=== PATIENT | female | born 1990 | race American Indian/Alaskan Native ===

== ENCOUNTER 2017-01-30 10:19 | Emergency (ER) | payer BC ==
[2017-01-30 11:13] LABS: Basophils % (Auto) 0.8 % (0.0-1.8); Eosinophils % (Auto) 2.1 % (0.0-4.3); Hematocrit 38.7 % (30.3-42.9); Hemoglobin 12.7 gm/dl (10.1-14.3); Mean Corpuscular HGB Conc 33 % (30-34); Mean Corpuscular Hemoglobin 28 pg (28-32); Mean Corpuscular Volume 86 fl (79-97); Platelet Count 267 K/mm3 (140-440); Red Blood Count 4.52 M/mm3 (3.65-5.03); Red Cell Distribution Width 13.9 % (13.2-15.2); White Blood Count 9.1 K/mm3 (4.5-11.0)
[2017-01-30 11:18] LABS: Bilirubin,Urine NEG (Negative); Blood,Urine NEG (Negative); Ketones,Urine NEG (Negative); Leukocyte Esterase,Urine NEG (Negative); Mucus,Urine FEW /HPF; Nitrite,Urine NEG (Negative); Urobilinogen,Urine < 2.0 mg/dL (<2.0)
--- NOTE | 2017-01-30 11:23 | Emergency Department Report ---
ED General Adult HPI - General Chief complaint: High BP Stated complaint: HIGH BP/ 10 WEEKS PREG. Time Seen by Provider: 01/30/17 11:14 Source: patient Mode of arrival: Ambulatory Limitations: No Limitations - History of Present Illness Initial comments: Patient is 26 years old female 10 weeks first came with a blood pressure of 195/120 it. Patient stated that her symptoms started on thyroid there was a headache and been going on since then denied any weakness numbness or tingling sensation, no bowel or bladder incontinence. Patient stated that she was on lisinopril but she started since she started and she is on methyldopa now. Patient denied any vaginal bleeding or abdominal pain or chest pain. -: Gradual Location: head Severity scale (0 -10): 7 Quality: sharp Associated Symptoms: headaches. denies: confusion, chest pain, cough, diaphoresis, fever/chills, loss of appetite, malaise, nausea/vomiting, rash, shortness of breath, syncope, weakness - Related Data Previous Rx's Medication Instructions Recorded Last Taken Type hydrALAZINE [Apresoline TAB] 50 mg PO BID #10 tab 01/30/17 Unknown Rx Allergies Allergy/AdvReac Type Severity Reaction Status Date / Time No Known Allergies Allergy Unverified 01/30/17 10:49 ED Review of Systems ROS: Stated complaint: HIGH BP/ 10 WEEKS PREG. Other details as noted in HPI Comment: All other systems reviewed and negative Constitutional: denies: chills, fever ENT: denies: throat pain Respiratory: denies: cough, orthopnea, shortness of breath Cardiovascular: denies: chest pain, palpitations Gastrointestinal: denies: abdominal pain, nausea, vomiting, diarrhea, constipation Musculoskeletal: denies: back pain, joint swelling Neurological: headache. denies: weakness, numbness, paresthesias, confusion, abnormal gait, vertigo ED Past Medical Hx - Past Medical History Previous Medical History?: Yes Hx Hypertension: Yes Additional medical history: Nephrotic syndrome - Surgical History Past Surgical History?: No - Social History Smoking Status: Never Smoker Substance Use Type: Prescribed - Medications Home Medications: Home Medications Medication Instructions Recorded Confirmed Last Taken Type hydrALAZINE [Apresoline TAB] 50 mg PO BID #10 tab 01/30/17 Unknown Rx ED Physical Exam - General Limitations: No Limitations General appearance: alert, in no apparent distress - Head Head exam: Present: atraumatic, normocephalic, normal inspection - Eye Eye exam: Present: normal appearance, PERRL, EOMI Pupils: Present: normal accommodation - ENT ENT exam: Present: normal exam, normal orophraynx, mucous membranes moist - Neck Neck exam: Present: normal inspection, full ROM. Absent: tenderness, meningismus - Respiratory Respiratory exam: Present: normal lung sounds bilaterally. Absent: respiratory distress, wheezes, rales, rhonchi, stridor, chest wall tenderness, accessory muscle use, decreased breath sounds, prolonged expiratory - Cardiovascular Cardiovascular Exam: Present: regular rate, normal rhythm, normal heart sounds - GI/Abdominal GI/Abdominal exam: Present: soft, normal bowel sounds. Absent: distended, tenderness, guarding, rebound, rigid, mass, bruit, pulsatile mass, hernia - Extremities Exam Extremities exam: Present: normal inspection. Absent: pedal edema - Back Exam Back exam: Present: normal inspection. Absent: tenderness, CVA tenderness (R), CVA tenderness (L) - Neurological Exam Neurological exam: Present: alert, oriented X3, CN II-XII intact, normal gait, reflexes normal. Absent: abnormal gait, motor sensory deficit - Skin Skin exam: Present: warm, intact, normal color ED Course Vital Signs 01/30/17 01/30/17 01/30/17 10:44 10:59 11:00 Temperature 98.5 F Pulse Rate 78 Respiratory 16 Rate Blood Pressure 186/120 195/128 Blood Pressure [Right] O2 Sat by Pulse 100 90 99 Oximetry 01/30/17 01/30/17 01/30/17 11:06 11:16 11:30 Temperature 98.6 F Pulse Rate 64 95 H 71 Respiratory 18 18 20 Rate Blood Pressure 195/128 195/128 Blood Pressure 195/128 [Right] O2 Sat by Pulse 98 100 Oximetry 01/30/17 01/30/17 01/30/17 11:38 11:46 12:00 Temperature Pulse Rate 63 96 H 101 H Respiratory 17 15 Rate Blood Pressure 195/128 177/108 184/103 Blood Pressure [Right] O2 Sat by Pulse 100 100 Oximetry 01/30/17 12:18 Temperature Pulse Rate Respiratory Rate Blood Pressure 184/103 Blood Pressure [Right] O2 Sat by Pulse 87 Oximetry - Reevaluation(s) Reevaluation #1: 01/30/17 13:04 Patient stated that she is feeling much better. Denied any headache, blurry vision, weakness numbness or tingling sensation abdominal pain or vaginal bleeding. Her blood pressure now is 141/86. Dr. Belem Bliss consulted and she advised to discharge home his hydralazine and to follow-up with them in the office tomorrow in the morning for further management. ED Medical Decision Making - Lab Data Result diagrams: 01/30/17 11:00 01/30/17 11:00 - Medical Decision Making Discussed the patient was Dr. Belem westfall, the patient advised patient can continue his hydralazine and they will see high in the office tomorrow. The reason that were not using labetalol is because of a low heart rate which is like 63. Critical care attestation.: If time is entered above; I have spent that time in minutes in the direct care of this critically ill patient, excluding procedure time. ED Disposition Clinical Impression: Hypertension affecting in first trimester Disposition: DC-01 TO HOME OR SELFCARE Is pt being admited?: No Condition: Stable Instructions: Hypertension (ED) Additional Instructions: Follow-up with Dr. Marylou Flores OB tomorrow as discussed with Dr. Belem Bliss Prescriptions: hydrALAZINE [Apresoline TAB] 50 mg PO BID #10 tab Referrals: PRIMARY CARE, [Primary Care Provider] - 3-5 Days
[2017-01-30] MEDS ORDERED: TYLENOL PO ONE (11:24)
[2017-01-30] MEDS ORDERED: APRESOLINE IV ONE (11:24)
[2017-01-30 11:27] LABS: Anion Gap 18 mmol/L; BUN/Creatinine Ratio 15.71; Blood Urea Nitrogen 11 mg/dL (7-17); Calcium 9.1 mg/dL (8.4-10.2); Carbon Dioxide 24 mmol/L (22-30); Chloride 95.1 mmol/L (98-107); Glucose 82 mg/dL (65-100); Potassium 3.4 mmol/L (3.6-5.0); Sodium 134 mmol/L (137-145)
[2017-01-30 11:42] LABS: Albumin 4.2 g/dL (3.9-5); Albumin/Globulin Ratio 1.3 %; Bilirubin,Total 0.3 mg/dL (0.1-1.2); Total Protein 7.4 g/dL (6.3-8.2)
[2017-01-30 11:51] LABS: Bilirubin,Direct 0.2 mg/dL (0-0.2); Bilirubin,Indirect 0.1 mg/dL
[2017-01-30 11:51] LABS: INR 0.91 (0.87-1.13)
[2017-01-30 11:52] LABS: Partial Thromboplastin Time 27.5 Sec. (24.2-36.6)
[2017-01-30 12:21] VITALS: BP 184/103
== END 2017-01-30 13:15 | disposition home or self-care (01) ==
LOC: ED 10:19 → MERGE 10:19 → ED 13:15
DX: O16.1 Unspecified maternal hypertension, first trimester (principal); Z3A.10 10 weeks gestation of pregnancy
CPT/HCPCS: 36415; 80048; 80074; 81001; 83615; 85025; 85610; 85730; 96374; 99283; J0360

== ENCOUNTER 2017-01-31 10:02 | Inpatient (IN) | payer BC ==
[2017-01-31] MEDS ORDERED: LACTATED RINGERS 1,000 ML IV SCH (11:00)
[2017-01-31] MEDS ORDERED: APRESOLINE IV PRN (11:30)
[2017-01-31] MEDS ORDERED: SODIUM CHLORIDE FLUSH SYRINGE 10 ML IV PRN (11:30)
[2017-01-31 12:04] LABS: Basophils % (Auto) 0.6 % (0.0-1.8); Hematocrit 36.9 % (30.3-42.9); Hemoglobin 12.7 gm/dl (10.1-14.3); Mean Corpuscular HGB Conc 35 % (30-34); Mean Corpuscular Hemoglobin 29 pg (28-32); Mean Corpuscular Volume 84 fl (79-97); Platelet Count 247 K/mm3 (140-440); Red Blood Count 4.41 M/mm3 (3.65-5.03); Red Cell Distribution Width 13.8 % (13.2-15.2); White Blood Count 9.8 K/mm3 (4.5-11.0)
[2017-01-31 12:23] LABS: Alanine Aminotransferase 23 units/L (7-56); Lactate Dehydrogenase 174 units/L (91-180); Uric Acid 4.1 mg/dL (3.5-7.6)
[2017-01-31] MEDS: NORMODYNE IV PRN ×2 (13:20→23:45)
--- NOTE | 2017-01-31 13:25 | Ultrasound Report ---
ULTRASOUND OB LIMITED History: well being Technique: Transabdominal ultrasound with Doppler interrogation. Gestation: Single Position: Variable Heart Rate: 174 BPM
[2017-01-31] MEDS: ALDOMET PO SCH ×2 (14:08→21:07)
[2017-01-31 14:50] LABS: Bilirubin,Urine NEG (Negative); Blood,Urine NEG (Negative); Ketones,Urine NEG (Negative); Leukocyte Esterase,Urine NEG (Negative); Nitrite,Urine NEG (Negative); Urobilinogen,Urine < 2.0 mg/dL (<2.0)
[2017-01-31 14:51] LABS: RBC,Urine < 1.0 /HPF (0.0-6.0)
--- NOTE | 2017-01-31 15:57 | Consultation ---
History of Present Illness - Reason for Consult Consult date: 01/31/17 accelerated hypertension, proteinuria, other - History of Present Illness 26 year old female primigravida LMP 11/21/16 at 10w1d admitted with a compliant of headache x 4 days duration and elevated BP. She states that she went to the ED on 01/27/17 started on started on hydralazine 50 mg PO BID for BP control. Prior to her she was on lisinopril for BP and switched to methyldopa at just before her . Her high BP hx is since age 18 and has also hx of nephrotic syndrome and was treated with steroids and prograf. We are consulted for management of her HTN and nephrotic syndrome. Past History Past Medical History: hypertension, other (nephrotic syndrome) Past Surgical History: No surgical history Social history: no significant social history. denies: smoking, alcohol abuse, IV drug use Family history: no significant family history Medications and Allergies Allergies Allergy/AdvReac Type Severity Reaction Status Date / Time No Known Allergies Allergy Verified 01/31/17 11:19 Home Medications Medication Instructions Recorded Confirmed Last Taken Type hydrALAZINE [Apresoline TAB] 50 mg PO BID #10 tab 01/30/17 01/31/17 08:00 Rx Active Meds: Active Medications Acetaminophen (Tylenol) 650 mg PO Q4H PRN PRN Reason: Pain MILD(1-3)/Fever >100.5/HITCHCOCK Acetaminophen/Hydrocodone Bitart ([place] 5/325) 2 each PO Q4H PRN PRN Reason: Pain, Moderate (4-6) Docusate Sodium (Colace) 100 mg PO Q12H PRN PRN Reason: Constipation Hydralazine HCl (Apresoline) 5 mg IV Q30MIN PRN PRN Reason: Hypertension Lactated Ringer's (Lactated Ringers) 1,000 mls @ 125 mls/hr IV DIRECT CALISTA Labetalol HCl (Normodyne) 10 mg IV Q6HR PRN PRN Reason: sbp>150 Last Admin: 01/31/17 13:20 Dose: 10 mg Methyldopa (Aldomet) 250 mg PO Q8HR CALISTA Last Admin: 01/31/17 14:08 Dose: 250 mg Multivitamins/Iron/Calcium ( Vitamin) 1 each PO QDAY [place] Sodium Chloride (Sodium Chloride Flush Syringe 10 Ml) 10 ml IV PRN PRN PRN Reason: LINE FLUSH Review of Systems Constitutional: no weight loss, no weight gain, no fever, no chills Ears, nose, mouth and throat: no ear discharge, no tinnitis, no decreased hearing Cardiovascular: no chest pain, no orthopnea, no palpitations Respiratory: no hemoptysis, no shortness of breath, no dyspnea on exertion Gastrointestinal: no abdominal pain, no nausea, no vomiting, no diarrhea Genitourinary Female: no dyspareunia, no dysmenorrhea, no pelvic pain, no flank pain Rectal: no pain, no incontinence Musculoskeletal: no neck stiffness, no neck pain, no shooting arm pain Integumentary: no rash, no pruritis, no redness Neurological: headaches, no transient paralysis, no paralysis, no weakness Psychiatric: no anxiety, no memory loss Endocrine: no cold intolerance, no heat intolerance, no polydipsia, no polyuria , no nocturia Hematologic/Lymphatic: no easy bruising, no easy bleeding Allergic/Immunologic: no urticaria, no allergic rhinitis Exam - Vital Signs Vital signs: Vital Signs Pulse Resp 76 20 01/31/17 11:25 01/31/17 11:25 - General Appearance General appearance: well-developed, well-nourished, appears stated age EENT: PERRL, mucous membranes moist Neck: Present: neck supple, trachea midline. Absent: JVD/HJR, Masses Respiratory: Clear to Ascultation, Other (no wheeing ) Heart: regular, normal heart rate, S1S2, no murmurs Gastrointestinal: Present: normal. Absent: tenderness, distended, masses, guarding Integumentary: no rash, warm and dry Neurologic: no focal deficit, alert and oriented x3, gait normal, strength 5/5 Musculoskeletal: Absent: deformities, joint swelling Psychiatric: mood/affect appropriate, cooperative Results - Lab Results 01/31/17 11:45 01/31/17 11:45 Assessment and Plan 1. Malignant hypertension (chronic) 2. Intra uterine , 10 W1d 3. Hx of nephrotic syndrome 4. Headaches likely 2/2 her elevated BP Plan: - Started Methyldopa 250 mg TID -IV labetalol 10 mg Q 6 hrs for SBP>150 -Goal is to lower BP to 150-160 range today and gradually lower BP to < =130/80 -Obtain 24 hr urine for Protein -F/u on OB U/S Further recommendations to follow. Thank you for the consult.
--- NOTE | 2017-01-31 17:32 | History and Physical Report ---
History of Present Illness Date of examination: 01/31/17 Date of admission: 01/31/17 10:55 Chief complaint: headache, hypertension History of present illness: Pt is a 26 year old female primigravida LMP 11/21/16 at 10w1d presents for the office with elevated blood pressures and headache. Her headache initially started on 01/27/17 and prompted her to go to the Emergency Department for evaluation where her blood pressure was noted to be 180-190s/100-120s. She was started on hydralazine 50 mg PO BID and told to follow up today in the office. Her headache remained, and her pressures were 160/100s in the office so she was admitted for blood pressure control. The patient has a medical history significant for chronic hypertension and nephrotic syndrome. She has had one visit with [facility]. Past History Past Medical History: hypertension, other (nephrotic syndrome ) Past Surgical History: no surgical history Family/Genetic History: diabetes Social history: - Obstetrical History Expected Date of Delivery: 08/28/17 Actual Gestation: 10 Week(s) 1 Day(s) : 1 Medications and Allergies Allergies Allergy/AdvReac Type Severity Reaction Status Date / Time No Known Allergies Allergy Verified 01/31/17 11:19 Home Medications Medication Instructions Recorded Confirmed Last Taken Type hydrALAZINE [Apresoline TAB] 50 mg PO BID #10 tab 01/30/17 01/31/17 08:00 Rx Active Meds: Active Medications Acetaminophen (Tylenol) 650 mg PO Q4H PRN PRN Reason: Pain MILD(1-3)/Fever >100.5/HITCHCOCK Acetaminophen/Hydrocodone Bitart ([place] 5/325) 2 each PO Q4H PRN PRN Reason: Pain, Moderate (4-6) Docusate Sodium (Colace) 100 mg PO Q12H PRN PRN Reason: Constipation Hydralazine HCl (Apresoline) 5 mg IV Q30MIN PRN PRN Reason: Hypertension Lactated Ringer's (Lactated Ringers) 1,000 mls @ 125 mls/hr IV DIRECT CALISTA Labetalol HCl (Normodyne) 10 mg IV Q6HR PRN PRN Reason: sbp>150 Last Admin: 01/31/17 13:20 Dose: 10 mg Methyldopa (Aldomet) 250 mg PO Q8HR CALISTA Last Admin: 01/31/17 14:08 Dose: 250 mg Multivitamins/Iron/Calcium ( Vitamin) 1 each PO QDAY [facility] Sodium Chloride (Sodium Chloride Flush Syringe 10 Ml) 10 ml IV PRN PRN PRN Reason: LINE FLUSH Review of Systems All systems: negative Neurological: headaches (per HPI), no migraines - Vital Signs Vital signs: Vital Signs Temp Pulse Resp BP 99.5 F 76 20 195/118 01/31/17 11:25 01/31/17 11:25 01/31/17 11:25 01/31/17 11:25 Temp Pulse Resp BP Pulse Ox 99.5 F 79 20 140/94 01/31/17 11:25 01/31/17 16:15 01/31/17 11:25 01/31/17 16:45 - Physical Exam Breasts: Positive: deferred Abdomen: Positive: soft Extremities: Positive: normal Results Result Diagrams: 01/31/17 11:45 01/31/17 11:45 Abnormal lab results 01/31/17 01/31/17 Range/Units 11:45 11:45 MCHC 35 H (30-34) % Seg Neutrophils % 77.4 H (40.0-70.0) % Creatinine 0.6 L (0.7-1.2) mg/dL All other labs normal. Assessment and Plan A: IUP at 10w1d Chronic Hypertension Headache Nephrotic Syndrome P: Admit to antepartum service. PIH labs IV antihypertensives PRN 24 hr urine collection Nephrology consult MFM consult [facility] ultrasound
[2017-01-31] MEDS: TYLENOL PO PRN (18:00)
[2017-01-31] MEDS: NORCO 5/325 PO PRN (21:09)
[2017-02-01] MEDS: ALDOMET PO SCH ×3 (07:05→21:59)
--- NOTE | 2017-02-01 08:36 | Progress Note ---
Assessment and Plan - Patient Problems (1) Nephrotic syndrome Current Visit: Yes Status: Acute Plan to address problem: procardia XL added to anti-hypertensive regimen awaiting urine collection results (2) Hypertension affecting in first trimester Current Visit: No Status: Acute Subjective - Subjective Date of service: 02/01/17 Principal diagnosis: chronic hypertension and nephrotic syndrome Interval history: 26y/o @ 10+2 weeks admitted for chronic hypertension and nephrotic syndrome. Today the patient is without complaints. Using aldomet TID for control of hypertension. Currently collecting a 24 urine specimen. Patient reports: no new complaints, no vaginal bleeding Objective - Vital Signs Vital Signs: Vital Signs - 12hr 01/31/17 01/31/17 01/31/17 21:07 23:30 23:45 Temperature 98.6 F Pulse Rate 70 70 70 Respiratory 16 Rate Blood Pressure 159/91 182/102 Blood Pressure 182/102 [Right] 01/31/17 02/01/17 02/01/17 23:55 00:00 00:05 Temperature Pulse Rate 68 61 Respiratory Rate Blood Pressure Blood Pressure 174/102 164/103 158/102 [Right] 02/01/17 02/01/17 02/01/17 00:15 00:56 02:30 Temperature 98.6 F Pulse Rate 62 79 69 Respiratory 16 Rate Blood Pressure Blood Pressure 148/106 124/69 117/69 [Right] 02/01/17 02/01/17 02/01/17 04:15 04:20 06:00 Temperature 98.6 F 98.6 F Pulse Rate 71 79 69 Respiratory 18 16 Rate Blood Pressure Blood Pressure 123/70 125/83 127/76 [Right] 02/01/17 07:05 Temperature Pulse Rate 72 Respiratory Rate Blood Pressure 141/89 Blood Pressure [Right] - Labs Labs: Abnormal Labs 01/31/17 01/31/17 11:45 11:45 MCHC 35 H Seg Neutrophils % 77.4 H Creatinine 0.6 L Laboratory Results - last 24 hr 01/31/17 01/31/17 01/31/17 11:45 11:45 13:58 WBC 9.8 RBC 4.41 Hgb 12.7 Hct 36.9 MCV 84 MCH 29 MCHC 35 H RDW 13.8 Plt Count 247 Lymph % (Auto) 17.2 [place] % (Auto) 3.8 Eos % (Auto) 1.0 Baso % (Auto) 0.6 Lymph # 1.7 [place] # 0.4 Eos # 0.1 Baso # 0.1 Seg Neutrophils % 77.4 H Seg Neutrophils # 7.6 Creatinine 0.6 L Estimated GFR > 60 Uric Acid 4.1 AST 19 ALT 23 Lactate Dehydrogenase 174 Urine Color Red Urine Turbidity Clear Urine pH 7.0 Ur Specific [place] 1.004 Urine Protein 30 mg/dl Urine Glucose (UA) Neg Urine Ketones Neg Urine Blood Neg Urine Nitrite Neg Urine Bilirubin Neg Urine Urobilinogen < 2.0 Ur Leukocyte Esterase Neg Urine WBC (Auto) 1.0 Urine RBC (Auto) < 1.0 U Epithel Cells (Auto) 2.0
[2017-02-01] MEDS ORDERED: PRENATAL VITAMIN PO SCH (10:00)
[2017-02-01] MEDS ORDERED: PROCARDIA XL PO SCH (10:00)
--- NOTE | 2017-02-01 10:39 | Progress Note ---
Assessment and Plan 1. Malignant hypertension (chronic) 2. Intra uterine , 10 W1d 3. Hx of nephrotic syndrome 4. Headaches likely 2/2 her elevated BP Plan: - BP improving. Will increase dose of Methyldopa 500 mg TID for better control of her BP and try to use less of IV antihypertensives -Follow up on 24 hr urine results. -IV labetalol 10 mg Q 6 hrs for SBP>150 -Goal is to gradually lower her BP to <=130/80 -F/u on OB U/S Subjective Date of service: 02/01/17 Principal diagnosis: chronic hypertension and nephrotic syndrome Interval history: No new complaints. Objective - Vital Signs Vital signs: Vital Signs - 12hr 01/31/17 01/31/17 01/31/17 23:30 23:45 23:55 Temperature 98.6 F Pulse Rate 70 70 Pulse Rate [ Apical] Respiratory 16 Rate Blood Pressure 182/102 Blood Pressure [Left] Blood Pressure 182/102 174/102 [Right] 02/01/17 02/01/17 02/01/17 00:00 00:05 00:15 Temperature Pulse Rate 68 61 62 Pulse Rate [ Apical] Respiratory Rate Blood Pressure Blood Pressure [Left] Blood Pressure 164/103 158/102 148/106 [Right] 02/01/17 02/01/17 02/01/17 00:56 02:30 04:15 Temperature 98.6 F 98.6 F Pulse Rate 79 69 71 Pulse Rate [ Apical] Respiratory 16 18 Rate Blood Pressure Blood Pressure [Left] Blood Pressure 124/69 117/69 123/70 [Right] 02/01/17 02/01/17 02/01/17 04:20 06:00 07:05 Temperature 98.6 F Pulse Rate 79 69 72 Pulse Rate [ Apical] Respiratory 16 Rate Blood Pressure 141/89 Blood Pressure [Left] Blood Pressure 125/83 127/76 [Right] 02/01/17 02/01/17 02/01/17 07:45 08:18 08:51 Temperature 99.5 F Pulse Rate 66 Pulse Rate [ 82 Apical] Respiratory 20 18 Rate Blood Pressure Blood Pressure 178/114 [Left] Blood Pressure 166/110 140/81 [Right] - General Appearance General appearance: well-developed, well-nourished, appears stated age EENT: PERRL, mucous membranes moist Neck: no JVD, no thyromegaly, no carotid bruit, supple Respiratory: Present: Clear to Ascultation, Other (no wheezing ) Cardiology: regular, normal heart rate, S1S2, no murmurs Gastrointestinal: normoactive bowel sounds, no tenderness Integumentary: no rash, warm and dry Neurologic: no focal deficit, alert and oriented x3, reflexes 2+ and symmetric, gait normal, strength 5/5 Musculoskeletal: no deformities, no erythema, no cyanosis, no clubbing Psychiatric: mood/affect appropriate, cooperative - Lab 01/31/17 11:45 01/31/17 11:45
[2017-02-01] MEDS ORDERED: ALDOMET PO SCH (11:40)
[2017-02-01] MEDS: COLACE PO PRN (14:35)
[2017-02-01 15:00] LABS: Total Protein 24 Hour,Urine 841.5 (2-200)
[2017-02-01] MEDS: TYLENOL PO PRN (16:20)
[2017-02-01] MEDS: NORCO 5/325 PO PRN ×2 (18:22→22:00)
[2017-02-02] MEDS: ALDOMET PO SCH ×2 (05:31→15:04)
[2017-02-02] MEDS: NORCO 5/325 PO PRN (05:32)
--- NOTE | 2017-02-02 08:45 | Progress Note ---
Assessment and Plan A: IUP at 10w1d Chronic Hypertension Headache Nephrotic Syndrome P: BP normalized throughout the night HITCHCOCK increased with 90mg Procardia will decrease to 30mg Appreciate recommendations from nephrology Await MFM consult 24 hr urine resulted elevated ( 800s) will await rec from nephrology baseline for OB continue norco for pain continue methyldopa 250mg tid US appreciated as normal with viability Subjective - Subjective Date of service: 02/02/17 Principal diagnosis: chronic hypertension and nephrotic syndrome Patient reports: appetite normal, voiding normally, ambulating normally Objective - Vital Signs Latest vital signs: Vital Signs Temp Pulse Resp BP BP BP 02/02/17 05:32 20 02/02/17 05:31 85 122/71 02/02/17 04:20 98.4 F 81 18 111/66 02/01/17 23:49 98.1 F 80 18 122/69 02/01/17 22:00 20 02/01/17 21:59 85 122/69 02/01/17 20:00 98.2 F 91 H 136/90 02/01/17 18:20 97.6 F 89 121/70 02/01/17 16:41 99.2 F 76 20 128/83 02/01/17 16:15 98.7 F 91 H 136/94 02/01/17 14:15 89 115/71 02/01/17 13:41 120/70 02/01/17 12:07 99.6 F 80 20 147/94 02/01/17 08:51 140/81 Intake and Output 02/01/17 02/02/17 02/02/17 23:59 07:59 15:59 Intake Total 120 120 Output Total 400 900 Balance -280 -780 Intake: Oral 120 120 Output: Urine 400 900 Void 400 900 Other: Total, Intake Amount 120 120 Total, Output Amount 400 600 Voiding Method Toilet - Exam Breasts: Present: deferred Cardiovascular: Present: Regular rate, Normal S1 Lungs: Present: Clear to auscultation, Normal air movement Abdomen: Present: normal appearance, soft, normal bowel sounds. Absent: distention, tenderness Uterus: Present: normal Extremities: Present: normal Deep Tendon Reflex Grade: Normal +2 - Labs Labs: Abnormal lab results 01/31/17 Range/Units 13:00 Urine Creatinine 83.8 H (0.1-20.0) mg/dL Ur Total Protein 24 Hr 841.50 H (2-200) Urine Total Protein 51 H (5-11.8) mg/dL
[2017-02-02] MEDS: COLACE PO PRN (11:04)
[2017-02-02] MEDS ORDERED: PROCARDIA XL PO SCH (11:30)
--- NOTE | 2017-02-02 12:07 | Consultation ---
History of Present Illness Reason for consult: other (Pt is a 26 year old female primigravida DEREK 08/28/17 at 10w2d presents for the office with elevated blood pressures and headache. Her headache initially started on 01/27/17 and prompted her to go to the ER blood pressure was noted to be 180-190s/100-120s. She was placed on hydralazine 50 mg PO BID . Her headache remained, and her reported BP were 160/ 100s in the office so she was admitted for blood pressure control. The patient has a medical history significant for chronic hypertension and nephrotic syndrome. She has had one visit with [facility]. ) Past History Past Medical History: hypertension, other (nephrotic syndrome ) Past Surgical History: no surgical history Family/Genetic History: diabetes - Obstetrical History : 1 Medications and Allergies Allergies Allergy/AdvReac Type Severity Reaction Status Date / Time No Known Allergies Allergy Verified 01/31/17 11:19 Home Medications Medication Instructions Recorded Confirmed Last Taken Type hydrALAZINE [Apresoline TAB] 50 mg PO BID #10 tab 01/30/17 02/01/17 01/31/17 08: 00 Rx Active Meds: Active Medications Acetaminophen (Tylenol) 650 mg PO Q4H PRN PRN Reason: Pain MILD(1-3)/Fever >100.5/HITCHCOCK Last Admin: 02/01/17 16:20 Dose: 650 mg Acetaminophen/Hydrocodone Bitart ([place] 5/325) 2 each PO Q4H PRN PRN Reason: Pain, Moderate (4-6) Last Admin: 02/02/17 05:32 Dose: 2 each Docusate Sodium (Colace) 100 mg PO Q12H PRN PRN Reason: Constipation Last Admin: 02/02/17 11:04 Dose: 100 mg Hydralazine HCl (Apresoline) 5 mg IV Q30MIN PRN PRN Reason: Hypertension Lactated Ringer's (Lactated Ringers) 1,000 mls @ 125 mls/hr IV DIRECT CALISTA Labetalol HCl (Normodyne) 10 mg IV Q6HR PRN PRN Reason: sbp>150 Last Admin: 01/31/17 23:45 Dose: 10 mg Methyldopa (Aldomet) 250 mg PO Q8HR CALISTA Last Admin: 02/02/17 05:31 Dose: 250 mg Multivitamins/Iron/Calcium ( Vitamin) 1 each PO QDAY [facility] Last Admin: 02/01/17 14:35 Dose: 1 each Nifedipine (Procardia Xl) 30 mg PO QDAY [facility] Last Admin: 02/02/17 11:07 Dose: 30 mg Sodium Chloride (Sodium Chloride Flush Syringe 10 Ml) 10 ml IV PRN PRN PRN Reason: LINE FLUSH Review of Systems Constitutional: no fever Eyes: no photophobia, no other (scotoma ) Ears, nose, mouth and throat: no headache Cardiovascular: high blood pressure (CHTN under medical regimen ), no chest pain , no rapid/irregular heart beat, no edema, no syncope, no shortness of breath Respiratory: no shortness of breath Breasts: deferred Gastrointestinal: no abdominal pain, no nausea, no vomiting, no indigestion Genitourinary: deferred Rectal Exam: deferred Integumentary: no rash Neurological: no seizures, no syncope, no vertigo, no migraines, no convulsions Hematologic/Lymphatic: no easy bruising, no easy bleeding - Vital Signs Vital signs: Vital Signs Temp Pulse Resp BP 99.5 F 76 20 195/118 01/31/17 11:25 01/31/17 11:25 01/31/17 11:25 01/31/17 11:25 Temp Pulse Resp BP Pulse Ox 98.5 F 77 18 125/79 98 02/02/17 07:54 02/02/17 07:54 02/02/17 07:54 02/02/17 07:54 02/02/17 07:54 - Physical Exam Cardiovascular: Regular rate Lungs: Positive: Normal air movement Abdomen: Negative: tenderness, guarding Uterus: Negative: tender - Obstetrical FHR: other (+ FHT via U/S performed 01/31/17) Results Result Diagrams: 01/31/17 11:45 01/31/17 11:45 Abnormal lab results 01/31/17 Range/Units 13:00 Urine Creatinine 83.8 H (0.1-20.0) mg/dL Ur Total Protein 24 Hr 841.50 H (2-200) Urine Total Protein 51 H (5-11.8) mg/dL All other labs normal. Ultrasound: report reviewed ([facility] 01/31/17 Single IUP with + FHT of 174 Variable ) Assessment and Plan A: IUP at 10w2d Chronic Hypertension with stable BP control under multi agents regimen of Procardia and Aldomet Serial BP - 110-120's /60-70's Headache resolved Nephrotic Syndrome followed by Nephrology Protein ,24 hr urine - 841 mg/24 hr Creatinine, Urine -83.8 Patient at risk for superimposed PreEclampsia P: Continue current medical regimen Upon clearance /discharge from Nephrology , early APA evaluation and assessment w/in 1 week of discharge LDA after 12 weeks
[2017-02-02 15:09] VITALS: BP 117/70
--- NOTE | 2017-02-02 15:51 | Event Note ---
Date: 02/02/17 Pt seen and examined. BP improved OK for discharge. To go home with aldomet 250 mg TID and procardia xl 30 mg daily Proteinuria <1 gm. No additional treatment at present F/u in office in 1 week.
--- NOTE | 2017-02-02 16:56 | Discharge Summary ---
Providers - Providers Date of Admission: 01/31/17 10:55 Date of discharge: 02/02/17 Attending physician: DIANA CASTILLO MD 01/31/17 10:26 Consult to Physician [CONS] Routine Consulting Provider: CACHORRO BATES Reason For Exam: IUPa t 10 wks, Hypertension, Nephrotic Syndrome Place consult to:: Notified:: Office Phone number called:: [phone] Was contact made?: Yes If yes, spoke with:: Tania Time called:: 11:35 Comment:: Tania said she would send msg to MD 01/31/17 10:32 Consult to Physician [CONS] Routine Consulting Provider: CICI LY Reason For Exam: IUP at 10 wk, nephrotic syndrome. hypertension Place consult to:: Notified:: office Phone number called:: [phone] Was contact made?: No If yes, spoke with:: * Time called:: 11:00 Primary care physician: DIANA CASTILLO MD Hospitalization Reason for admission: other (Chronic HTn, nephrotic syndrome and headache ) Discharge diagnosis: other (Chronic HTn, nephrotic and headache ) Hospital course: Patient was admitted and started on anti htn consults from nephrology and M appreciated. Patient to f/u in 1 week with [facility] and nephrology and on Tuesday with Dr. Palomino. Will continue present mgt with aldomet and procardia and norco as needed for HITCHCOCK. Condition at discharge: Good Disposition: DC- TO HOME OR SELFCARE Plan - Discharge Medications Prescriptions: HYDROcodone/APAP 5-325 [[place] 5/325] 1 each PO Q6HR PRN #20 tablet PRN Reason: Pain Methyldopa [Aldomet] 250 mg PO TID #60 tablet NIFEdipine XL [Procardia Xl] 30 mg PO QDAY #30 tablet - Provider Discharge Summary Activity: routine, no sex for 6 weeks, no strenuous exercise Diet: routine Instructions: routine Additional instructions: [] Smoking cessation referral if applicable(refer to patient education folder for contact #) [] Refer to [facility]'s [facility] Booklet Call your doctor immediately for: * Fever > 100.5 * Heavy vaginal bleeding ( >1 pad per hour) * Severe persistent headache * Shortness of breath * Reddened, hot, painful area to leg or breast * Drainage or odor from incision. * Keep incision clean and dry at all times and follow doctor's instructions regarding bathing/showering - Follow up plan Follow up: DIANA CASTILLO MD [Primary Care Provider] - 7 Days
--- NOTE | 2017-02-02 22:03 | Progress Note ---
Assessment and Plan 1. Malignant hypertension (chronic) 2. Intra uterine , 10 W1d 3. Hx of nephrotic syndrome 4. Headaches likely 2/2 her elevated BP Plan: - BP improved. Continue Methyldopa at 250 TID and Procardia at 30 mg daily. - 24 hr urine results noted. has about 800 mgs of protein. No need for further medications at present. Will monitor closely as out patient -Ok for d/c from renal perspective Subjective Date of service: 02/02/17 Principal diagnosis: chronic hypertension and nephrotic syndrome Interval history: Pt seen and examined earlier today. Feels better. Objective - Exam Narrative Exam: General appearance: well-developed, well-nourished, appears stated age EENT: PERRL, mucous membranes moist Neck: no JVD, no thyromegaly, no carotid bruit, supple Respiratory: Present: Clear to Ascultation, Other (no wheezing ) Cardiology: regular, normal heart rate, S1S2, no murmurs Gastrointestinal: normoactive bowel sounds, no tenderness Integumentary: no rash, warm and dry Neurologic: no focal deficit, alert and oriented x3, reflexes 2+ and symmetric, gait normal, strength 5/5 Musculoskeletal: no deformities, no erythema, no cyanosis, no clubbing Psychiatric: mood/affect appropriate, cooperative - Vital Signs Vital signs: Vital Signs - 12hr 02/02/17 02/02/17 02/02/17 12:58 15:04 15:06 Temperature 98.6 F 98.5 F Pulse Rate 71 75 75 Respiratory 18 Rate Blood Pressure 140/83 117/70 Blood Pressure 117/70 [Left] O2 Sat by Pulse 99 Oximetry - Lab 01/31/17 11:45 01/31/17 11:45 Most recent lab results Urine Creatinine 83.8 mg/dL (0.1-20.0) H 01/31/17 13:00 Ur Total Protein 24 Hr 841.50 (2-200) H 01/31/17 13:00 Urine Total Protein 51 mg/dL (5-11.8) H 01/31/17 13:00
== END 2017-02-02 18:00 | disposition home or self-care (01) | DRG 781 ==
LOC: UNDOADMIN 10:02 → 3A 10:02 → OB 10:55
PROVIDERS: ADMIT Obstetrics & Gynecology; ATTEND Obstetrics & Gynecology
DX: O10.911 Unspecified pre-existing hypertension complicating pregnancy, first trimester (principal); O26.831 Pregnancy related renal disease, first trimester; N04.9 Nephrotic syndrome with unspecified morphologic changes; Z3A.10 10 weeks gestation of pregnancy
CPT/HCPCS: 36415; 76815; 81001; 82565; 82570; 83615; 84156; 84450; 84460; 84550; 85025

== ENCOUNTER 2017-06-06 09:54 | Outpatient (CLI) | payer BC, MEDICAID ==
[2017-06-06] MEDS ORDERED: LACTATED RINGERS 500 ML IV ONE (11:00)
[2017-06-06 12:31] VITALS: BP 126/82
--- NOTE | 2017-06-06 12:54 | Ultrasound Report ---
ULTRASOUND OB LIMITED History: Oligohydramnios Technique: Transabdominal ultrasound with Doppler interrogation. Gestation: Single Position: Cephalic Amniotic Fluid: Normal NATALIE = 10.6 cm Heart Rate: 152 BPM
== END 2017-06-06 12:50 | disposition home or self-care (01) ==
LOC: TRG 09:54
PROVIDERS: ATTEND Obstetrics & Gynecology
DX: O47.03 False labor before 37 completed weeks of gestation, third trimester (principal); Z3A.28 28 weeks gestation of pregnancy
CPT/HCPCS: 76815

== ENCOUNTER 2017-07-19 10:48 | Outpatient (CLI) | payer BC, MEDICAID ==
[2017-07-19] MEDS ORDERED: LACTATED RINGERS 500 ML IV ONE (12:17)
[2017-07-19 13:13] LABS: Bacteria,Urine 1+ /HPF (Negative); Bilirubin,Urine NEG (Negative); Blood,Urine NEG (Negative); Color,Urine Yellow (Yellow); Mucus,Urine FEW /HPF; Urobilinogen,Urine < 2.0 mg/dL (<2.0)
[2017-07-19 14:32] LABS: Hematocrit 31.6 % (30.3-42.9); Hemoglobin 10.5 gm/dl (10.1-14.3); Mean Corpuscular HGB Conc 33 % (30-34); Mean Corpuscular Hemoglobin 29 pg (28-32); Mean Corpuscular Volume 87 fl (79-97); Platelet Count 249 K/mm3 (140-440); Red Blood Count 3.65 M/mm3 (3.65-5.03); Red Cell Distribution Width 13.6 % (13.2-15.2)
[2017-07-19 14:53] VITALS: BP 126/70
[2017-07-19 14:54] LABS: Alanine Aminotransferase 29 units/L (7-56); Uric Acid 4.9 mg/dL (3.5-7.6)
== END 2017-07-19 15:33 | disposition home or self-care (01) ==
LOC: TRG 10:48
PROVIDERS: ATTEND Obstetrics & Gynecology
DX: O47.03 False labor before 37 completed weeks of gestation, third trimester (principal); Z3A.34 34 weeks gestation of pregnancy
CPT/HCPCS: 36415; 59025; 81001; 82565; 83615; 84450; 84460; 84550; 85027

== ENCOUNTER 2017-07-25 11:23 | Outpatient (CLI) | payer BC, MEDICAID ==
[2017-07-25] MEDS ORDERED: CELESTONE SOLUSPAN IM ONE (13:00)
[2017-07-25 13:11] LABS: Hematocrit 32.3 % (30.3-42.9); Hemoglobin 10.9 gm/dl (10.1-14.3); Mean Corpuscular HGB Conc 34 % (30-34); Mean Corpuscular Hemoglobin 29 pg (28-32); Mean Corpuscular Volume 86 fl (79-97); Platelet Count 271 K/mm3 (140-440); Red Blood Count 3.75 M/mm3 (3.65-5.03); Red Cell Distribution Width 13.6 % (13.2-15.2)
[2017-07-25 13:12] LABS: Bilirubin,Urine NEG (Negative); Blood,Urine NEG (Negative); Color,Urine Yellow (Yellow); Mucus,Urine FEW /HPF; Urobilinogen,Urine < 2.0 mg/dL (<2.0)
[2017-07-25 13:28] LABS: Alanine Aminotransferase 29 units/L (7-56); Uric Acid 5.2 mg/dL (3.5-7.6)
[2017-07-25] MEDS ORDERED: NORMOSOL-R PH 7.4 1,000 ML IV ONE ×2 (14:30→19:03)
[2017-07-25 14:43] VITALS: BP 139/92
[2017-07-25] MEDS ORDERED: BRETHINE SUB-Q ONE (16:55)
[2017-07-25] MEDS ORDERED: BRETHINE IVP ONE (16:56)
--- NOTE | 2017-07-25 20:05 | Ultrasound Report ---
FINAL REPORT EXAM: US OB BPP WO NON-STRESS HISTORY: well being TECHNIQUE: Biophysical profile obstetrical ultrasound PRIORS: None. FINDINGS: LMP 11/21/2016 clinical Age:. 35 W 1 d LMP EDC 08/28/2017 Biophysical profile scoring 2 movement 2 tone 2 breathing 2 fluid 8/8 overall score Presentation: Cephalic Activity: Monitored Cardiac motion: 125 BPM using M-mode doppler Amniotic Fluid Volume: Adequate NATALIE 12.3 cm IMPRESSION: Single intrauterine viable . Biophysical profile score is. 8/8
--- NOTE | 2017-07-25 20:10 | Ultrasound Report ---
FINAL REPORT EXAM: US OB LIMITED HISTORY: well being TECHNIQUE: Limited obstetrical ultrasound PRIORS: None. FINDINGS: LMP: 11/21/2016 clinical Age: 35 w 1d LMP EDC: 08/28/2017 Presentation: Cephalic Activity: Monitored Cardiac motion: 125 BPM using M-mode doppler Amniotic Fluid Volume: Adequate NATALIE: 12.3 cm IMPRESSION: Single intrauterine viable with an approximate age of 35 weeks 1 days.
== END 2017-07-25 20:03 | disposition home or self-care (01) ==
LOC: TRG 11:23
PROVIDERS: ATTEND Obstetrics & Gynecology
DX: O16.3 Unspecified maternal hypertension, third trimester (principal); Z3A.35 35 weeks gestation of pregnancy
CPT/HCPCS: 36415; 76815; 76819; 81001; 82565; 83615; 84450; 84460; 84550; 85027; 96372; J0702; J3105

== ENCOUNTER 2017-07-26 11:37 | Outpatient (CLI) | payer BC, MEDICAID ==
[2017-07-26] MEDS ORDERED: CELESTONE SOLUSPAN IM ONE (12:30)
[2017-07-26 12:37] VITALS: BP 136/90
[2017-07-26] MEDS ORDERED: LACTATED RINGERS 500 ML IV ONE (17:51)
== END 2017-07-26 14:15 | disposition home or self-care (01) ==
LOC: TRG 11:37
PROVIDERS: ATTEND Obstetrics & Gynecology
DX: O47.03 False labor before 37 completed weeks of gestation, third trimester (principal); Z3A.35 35 weeks gestation of pregnancy
CPT/HCPCS: 59025; 96372; J0702

== ENCOUNTER 2017-08-02 17:56 | Inpatient (IN) | payer BC, MEDICAID ==
[2017-08-02] MEDS ORDERED: APRESOLINE IV PRN (21:52)
--- NOTE | 2017-08-02 22:00 | History and Physical Report ---
History of Present Illness Date of examination: 08/02/17 Date of admission: 08/02/17 20:05 Chief complaint: My blood pressure is high History of present illness: Patient is a 26 year old G1 with severe chronic hypertension, nephrotic syndrome at 36 weeks gestation. She called today complaining of a headache and an elevated blood pressure of 160/100 Past History Past Medical History: hypertension Social history: single - Obstetrical History : 1 Medications and Allergies Allergies Allergy/AdvReac Type Severity Reaction Status Date / Time No Known Allergies Allergy Verified 01/31/17 11:19 Home Medications Medication Instructions Recorded Confirmed Last Taken Type hydrALAZINE [Apresoline TAB] 50 mg PO BID #10 tab 01/30/17 02/01/17 01/31/17 08: 00 Rx HYDROcodone/APAP 5-325 [[place] 1 each PO Q6HR PRN #20 tablet 02/02/17 Unknown Rx 5/325] Methyldopa [Aldomet] 250 mg PO TID #60 tablet 02/02/17 Unknown Rx NIFEdipine XL [Procardia Xl] 30 mg PO QDAY #30 tablet 02/02/17 Unknown Rx Active Meds: Active Medications Amlodipine Besylate (Norvasc) 5 mg PO QDAY CALISTA Hydralazine HCl (Apresoline) 5 mg IV Q30MIN PRN PRN Reason: Hypertension Lactated Ringer's (Lactated Ringers) 1,000 mls @ 125 mls/hr IV DIRECT CALISTA Review of Systems All systems: negative Cardiovascular: high blood pressure - Vital Signs Vital signs: Vital Signs Pulse BP 84 176/99 08/02/17 19:08 08/02/17 19:08 Temp Pulse Resp BP Pulse Ox 99.0 F 84 18 179/102 99 08/02/17 19:22 08/02/17 21:59 08/02/17 19:22 08/02/17 21:48 08/02/17 21:59 - Physical Exam Breasts: Cardiovascular: Regular rate, Normal S1, Normal S2 Lungs: Positive: Clear to auscultation, Normal air movement Abdomen: Positive: normal appearance, soft, normal bowel sounds. Negative: distention, tenderness Vulva: both: normal Vagina: Positive: normal moisture. Negative: discharge Cervix: Negative: lesion, discharge Uterus: Positive: normal size, normal contour Adnexa: both: normal Anus/Rectum: Positive: normal perianal skin, heme negative. Negative: rectal mass, hemorrhoids Extremities: Deep Tendon Reflex Grade: Normal +2 - Obstetrical FHR: auscultation normal Results Result Diagrams: 08/02/17 22:58 All other labs normal. Assessment and Plan Iup at 36 weeks with severe hypertension. Will admit for inpatient management and control and may possible proceed with delivery
[2017-08-02] MEDS: ALDOMET PO SCH (22:44)
[2017-08-02] MEDS: LACTATED RINGERS 1,000 ML IV SCH (23:03)
[2017-08-02 23:30] LABS: Bilirubin,Urine NEG (Negative); Blood,Urine NEG (Negative); Color,Urine Yellow (Yellow); Mucus,Urine FEW /HPF; Urobilinogen,Urine < 2.0 mg/dL (<2.0)
[2017-08-02 23:38] LABS: Hematocrit 28.7 % (30.3-42.9); Hemoglobin 9.7 gm/dl (10.1-14.3); Mean Corpuscular HGB Conc 34 % (30-34); Mean Corpuscular Hemoglobin 29 pg (28-32); Mean Corpuscular Volume 86 fl (79-97); Platelet Count 291 K/mm3 (140-440); Red Blood Count 3.34 M/mm3 (3.65-5.03)
[2017-08-02 23:55] LABS: Alanine Aminotransferase 32 units/L (7-56); Albumin 3.1 g/dL (3.9-5)
[2017-08-02 23:59] LABS: Bilirubin,Direct < 0.2 mg/dL (0-0.2)
[2017-08-03] MEDS: ALDOMET PO SCH ×3 (06:47→22:31)
[2017-08-03] MEDS: LACTATED RINGERS 1,000 ML IV SCH ×2 (06:50→14:22)
[2017-08-03] MEDS ORDERED: PITOCin/NS 20 UNIT/1000ML DRIP 20 UNITS/1,000 ML BAG IV SCH (08:00)
[2017-08-03] MEDS ORDERED: LACTATED RINGERS 1,000 ML IV SCH ×2 (08:00→10:00)
[2017-08-03] MEDS ORDERED: MAGNESIUM SULFATE 4GM/100ML 4 GM/100 ML BAG IV NR (08:30)
[2017-08-03] MEDS ORDERED: MAGNESIUM SULFATE 40GM/1000ML 40 GM/1,000 ML BAG IV SCH (09:00)
[2017-08-03] MEDS ORDERED: CALCIUM GLUCONATE IV PRN (09:00)
[2017-08-03] MEDS ORDERED: SUBLIMAZE IV PRN (09:37)
[2017-08-03] MEDS ORDERED: MINERAL OIL PO PRN (09:37)
[2017-08-03] MEDS ORDERED: ZOFRAN IV PRN (09:37)
[2017-08-03] MEDS ORDERED: XYLOCAINE 2% INFILTRATI ONE (09:37)
[2017-08-03] MEDS ORDERED: ePHEDrine SULFATE IV PRN (09:37)
[2017-08-03] MEDS ORDERED: POLYCILLIN/NS 2 GM/100 ML 2 GM/100 ML BAG IV ONE (09:37)
[2017-08-03] MEDS ORDERED: NARCAN 0.4 MG/1 ML IV PRN (09:37)
[2017-08-03] MEDS ORDERED: BRETHINE SUB-Q PRN (09:37)
[2017-08-03] MEDS ORDERED: BRETHINE IVP PRN (09:37)
[2017-08-03] MEDS ORDERED: PITOCin/NS 30 UNIT/500ML 30 UNITS/500 ML BAG IV SCH ×2 (10:00)
[2017-08-03] MEDS ORDERED: NORVASC PO SCH (10:00)
--- NOTE | 2017-08-03 10:39 | Progress Note ---
Assessment and Plan A: IUP at 36w3d Chronic hypertension with superimposed preeclampsia Nephrotic Syndrome IUGR GBS positive status P: Begin Magnesium sulfate for seizure prophylaxis. Betamethasone 12 mg IM x 1 (pt received steroid course earlier in the ) Ampicillin for GBS prophylaxis Cervidil induction. 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 Still with intermittent headache. [facility] contacted with recommendation to proceed with delivery. Patient reports: no new complaints Objective - Vital Signs Vital Signs: Vital Signs - 12hr 08/02/17 08/02/17 08/02/17 22:44 22:46 22:49 Pulse Rate 81 92 H 81 Blood Pressure 134/80 134/80 O2 Sat by Pulse 98 98 Oximetry 08/02/17 08/02/17 08/02/17 22:54 23:08 23:13 Pulse Rate 84 93 H 94 H Blood Pressure O2 Sat by Pulse 98 99 99 Oximetry 08/02/17 08/02/17 08/02/17 23:18 23:19 23:23 Pulse Rate 88 90 92 H Blood Pressure 146/82 O2 Sat by Pulse 99 98 Oximetry 08/02/17 08/02/17 08/02/17 23:28 23:33 23:38 Pulse Rate 92 H 89 81 Blood Pressure O2 Sat by Pulse 100 100 100 Oximetry 08/02/17 08/02/17 08/02/17 23:43 23:48 23:49 Pulse Rate 90 90 91 H Blood Pressure 132/74 O2 Sat by Pulse 100 100 Oximetry 08/02/17 08/02/17 08/03/17 23:53 23:58 00:03 Pulse Rate 114 H 97 H 98 H Blood Pressure O2 Sat by Pulse 100 99 100 Oximetry 08/03/17 08/03/17 08/03/17 00:08 00:13 00:18 Pulse Rate 84 86 94 H Blood Pressure O2 Sat by Pulse 99 99 100 Oximetry 08/03/17 08/03/17 08/03/17 00:19 00:23 00:28 Pulse Rate 101 H 83 101 H Blood Pressure 144/81 O2 Sat by Pulse 99 99 Oximetry 08/03/17 08/03/17 08/03/17 00:33 00:38 00:43 Pulse Rate 88 95 H 92 H Blood Pressure O2 Sat by Pulse 99 99 99 Oximetry 08/03/17 08/03/17 08/03/17 00:48 00:49 00:53 Pulse Rate 96 H 90 86 Blood Pressure 154/84 O2 Sat by Pulse 99 99 Oximetry 08/03/17 08/03/17 08/03/17 00:58 01:03 01:08 Pulse Rate 86 82 95 H Blood Pressure O2 Sat by Pulse 99 99 99 Oximetry 08/03/17 08/03/17 08/03/17 01:13 01:18 01:21 Pulse Rate 95 H 91 H 93 H Blood Pressure 135/80 O2 Sat by Pulse 99 99 Oximetry 08/03/17 08/03/17 08/03/17 01:23 01:28 01:33 Pulse Rate 92 H 98 H 85 Blood Pressure O2 Sat by Pulse 99 100 100 Oximetry 08/03/17 08/03/17 08/03/17 01:38 01:43 01:48 Pulse Rate 93 H 93 H 84 Blood Pressure O2 Sat by Pulse 100 100 100 Oximetry 08/03/17 08/03/17 08/03/17 01:49 01:53 01:58 Pulse Rate 86 84 91 H Blood Pressure 154/84 O2 Sat by Pulse 100 100 Oximetry 08/03/17 08/03/17 08/03/17 02:03 02:08 02:13 Pulse Rate 93 H 81 95 H Blood Pressure O2 Sat by Pulse 100 100 100 Oximetry 08/03/17 08/03/17 08/03/17 02:18 02:19 02:23 Pulse Rate 95 H 93 H 92 H Blood Pressure 156/92 O2 Sat by Pulse 100 100 Oximetry 08/03/17 08/03/17 08/03/17 02:28 02:49 03:19 Pulse Rate 100 H 83 72 Blood Pressure 145/89 154/80 O2 Sat by Pulse 100 Oximetry 08/03/17 08/03/17 08/03/17 03:50 04:20 04:49 Pulse Rate 81 77 79 Blood Pressure 159/94 163/81 146/87 O2 Sat by Pulse Oximetry 08/03/17 08/03/17 08/03/17 05:19 05:49 06:19 Pulse Rate 77 79 75 Blood Pressure 164/85 151/96 158/89 O2 Sat by Pulse Oximetry 08/03/17 08/03/17 08/03/17 06:47 06:50 07:00 Pulse Rate 86 86 69 Blood Pressure 168/98 168/98 O2 Sat by Pulse 98 Oximetry 08/03/17 08/03/17 08/03/17 07:05 07:10 07:15 Pulse Rate 80 71 78 Blood Pressure O2 Sat by Pulse 99 99 99 Oximetry 08/03/17 08/03/17 08/03/17 07:20 07:29 07:30 Pulse Rate 72 69 89 Blood Pressure 174/93 O2 Sat by Pulse 99 90 99 Oximetry 08/03/17 08/03/17 08/03/17 07:35 07:40 07:45 Pulse Rate 86 71 83 Blood Pressure O2 Sat by Pulse 99 99 99 Oximetry 08/03/17 08/03/17 08/03/17 07:49 07:50 07:55 Pulse Rate 74 79 80 Blood Pressure 157/86 O2 Sat by Pulse 99 99 Oximetry 08/03/17 08/03/17 08/03/17 08:00 08:05 08:10 Pulse Rate 86 101 H 89 Blood Pressure O2 Sat by Pulse 99 100 100 Oximetry 08/03/17 08/03/17 08/03/17 08:15 08:49 09:14 Pulse Rate 83 88 111 H Blood Pressure 141/87 138/96 O2 Sat by Pulse 99 Oximetry 08/03/17 08/03/17 08/03/17 09:25 09:29 09:30 Pulse Rate 98 H 100 H 102 H Blood Pressure 141/78 O2 Sat by Pulse 99 97 Oximetry 08/03/17 08/03/17 08/03/17 09:35 09:40 09:44 Pulse Rate 128 H 111 H 113 H Blood Pressure 145/84 O2 Sat by Pulse 98 97 Oximetry 08/03/17 08/03/17 08/03/17 09:45 09:50 09:55 Pulse Rate 119 H 117 H 100 H Blood Pressure O2 Sat by Pulse 97 98 98 Oximetry 08/03/17 08/03/17 08/03/17 09:59 10:00 10:05 Pulse Rate 96 H 108 H 89 Blood Pressure 144/84 O2 Sat by Pulse 99 98 Oximetry 08/03/17 08/03/17 08/03/17 10:10 10:14 10:15 Pulse Rate 102 H 93 H 92 H Blood Pressure 154/102 O2 Sat by Pulse 98 99 Oximetry 08/03/17 08/03/17 08/03/17 10:20 10:25 10:29 Pulse Rate 94 H 94 H 90 Blood Pressure 146/98 O2 Sat by Pulse 99 99 Oximetry 08/03/17 08/03/17 08/03/17 10:30 10:35 10:40 Pulse Rate 102 H 95 H 88 Blood Pressure O2 Sat by Pulse 99 99 99 Oximetry - Exam Breasts: deferred Abdomen: Present: soft (gravid ) Uterus: Present: normal (gravid ) FHR: auscultation normal Uterine Contraction Monitor Mode: External Uterine Contraction Pattern: Absent Uterine Tone Measurement Phase: Resting Extremities: normal - Labs Labs: Abnormal Labs 08/02/17 08/02/17 22:58 22:58 RBC 3.34 L Hgb 9.7 L Hct 28.7 L Total Protein 5.9 L Albumin 3.1 L Laboratory Results - last 24 hr 08/02/17 08/02/17 08/02/17 22:58 22:58 22:58 WBC 10.7 RBC 3.34 L Hgb 9.7 L Hct 28.7 L MCV 86 MCH 29 MCHC 34 RDW 14.0 Plt Count 291 Uric Acid 5.4 Total Bilirubin < 0.20 Direct Bilirubin < 0.2 Indirect Bilirubin 0.0 AST 23 ALT 32 Alkaline Phosphatase 94 Total Protein 5.9 L Albumin 3.1 L Albumin/Globulin Ratio 1.1 Urine Color Urine Turbidity Urine pH Ur Specific [place] Urine Protein Urine Glucose (UA) Urine Ketones Urine Blood Urine Nitrite Urine Bilirubin Urine Urobilinogen Ur Leukocyte Esterase Urine WBC (Auto) Urine RBC (Auto) U Epithel Cells (Auto) Urine Mucus Blood Type Antibody Screen 08/02/17 08/03/17 23:00 08:40 WBC RBC Hgb Hct MCV MCH MCHC RDW Plt Count Uric Acid Total Bilirubin Direct Bilirubin Indirect Bilirubin AST ALT Alkaline Phosphatase Total Protein Albumin Albumin/Globulin Ratio Urine Color Yellow Urine Turbidity Clear Urine pH 6.0 Ur Specific [place] 1.013 Urine Protein 100 mg/dl Urine Glucose (UA) Neg Urine Ketones Neg Urine Blood Neg Urine Nitrite Neg Urine Bilirubin Neg Urine Urobilinogen < 2.0 Ur Leukocyte Esterase Sm Urine WBC (Auto) 2.0 Urine RBC (Auto) 3.0 U Epithel Cells (Auto) 5.0 Urine Mucus Few Blood Type A POSITIVE Antibody Screen Negative
[2017-08-03] MEDS ORDERED: CELESTONE SOLUSPAN IM ONE (10:43)
[2017-08-03] MEDS ORDERED: CERVIDIL VG ONE (11:25)
[2017-08-03] MEDS: APRESOLINE IV PRN ×2 (12:57→20:24)
[2017-08-03] MEDS: AMPICILLIN/NS 1 GM/50 ML 1 GM/50 ML BAG IV SCH ×3 (14:21→22:32)
[2017-08-03] MEDS: STADOL IV PRN (22:33)
[2017-08-04] MEDS: AMPICILLIN/NS 1 GM/50 ML 1 GM/50 ML BAG IV SCH ×2 (02:30→05:51)
[2017-08-04] MEDS: STADOL IV PRN (05:10)
[2017-08-04] MEDS: ALDOMET PO SCH (05:52)
--- NOTE | 2017-08-04 07:51 | Event Note ---
Date: 08/04/17 Pt in pain with contractions. Cervix /1. Intact. Cat II tracing. Continue routine intrapartum care.
[2017-08-04] MEDS ORDERED: NARCAN 2 MG/2 ML IV PRN (08:04)
[2017-08-04] MEDS ORDERED: ePHEDrine SULFATE IV PRN (08:04)
--- NOTE | 2017-08-04 08:04 | Anesthesia Consultation ---
Anesthesia Consult and Med Hx Date of service: 08/04/17 - Airway Anesthetic Teeth Evaluation: Good ROM Head & Neck: Adequate Mental/Hyoid Distance: Adequate Mallampati Class: Class II Intubation Access Assessment: Probably Good - Pre-Operative Health Status ASA Pre-Surgery Classification: ASA2 Proposed Anesthetic Plan: Epidural, Spinal - Pulmonary Hx Asthma: No COPD: No Hx Pneumonia: No - Cardiovascular System Hx Hypertension: Yes Hx Coronary Artery Disease: No Hx Percutaneous Transluminal Coronary Angioplasty (PTCA): No Hx Pacemaker: No Hx Internal Defibrillator: No Hx Valvular Heart Disease: No Hx Heart Murmur: No Hx Peripheral Vascular Disease: No - Central Nervous System Hx Seizures: No Hx Psychiatric Problems: No - Endocrine Hx Renal Disease: Yes (2009) Hx End Stage Renal Disease: No Hx Hypothyroidism: No Hx Hyperthyroidism: No - Hematic Hx Anemia: No Hx Sickle Cell Disease: No - Other Systems Hx Alcohol Use: No
[2017-08-04] MEDS: APRESOLINE IV PRN (08:58)
[2017-08-04] MEDS ORDERED: fentaNYL-BUPIV 2 MCG/ML-0.125% 200 MCG/100 ML BAG EPIDURAL SCH (09:00)
[2017-08-04] MEDS ORDERED: NACL 0.9% 1000 ML 1,000 ML ONE (09:17)
[2017-08-04] MEDS: PITOCin/NS 20 UNIT/1000ML DRIP 20 UNITS/1,000 ML BAG IV SCH ×2 (09:35→11:30)
--- NOTE | 2017-08-04 10:20 | Procedure Note ---
OB Delivery Note - Delivery Date of Delivery: 08/04/17 (5-11 male @ 0933) Surgeon: ALBINO BARRAGAN Estimated blood loss: 200cc - Vaginal Delivery presentation: vertex Delivery position: OA Intrapartum events: preeclampsia Delivery induction: oxytocin Delivery augmentation: rupture of membranes Delivery monitor: external FHT, external uterine Route of delivery: Delivery placenta: spontaneous, other (sent to pathology) Delivery cord: 3 umbilical vessels Episiotomy: none Delivery laceration: 2nd degree Delivery repair: vicryl (3.[address] under epidural anethesia) Anesthesia: epidural - A at 1 minute: 8 at 5 minutes: 9 Infant Gender: Male (Pushed to of viable male in OA position over intact perinuem and under epidural anethesia. NICU team present for delivery. spont. lusty cry. Dried and placed skin to skin. Spont. placenta, sent to pathology. FF 2 below U, ML. bleeding small. Repair of 2nd degree in usual fashion. salazar replaced and Magnesium Sulfate restarted.)
[2017-08-04] MEDS ORDERED: LANSINOH TP PRN (10:22)
[2017-08-04] MEDS ORDERED: BENADRYL PO PRN (10:22)
[2017-08-04] MEDS ORDERED: ZOFRAN IV PRN (10:22)
[2017-08-04] MEDS ORDERED: MILK OF MAGNESIA PO PRN (10:22)
[2017-08-04] MEDS ORDERED: DULCOLAX PR PRN (10:22)
[2017-08-04] MEDS ORDERED: TYLENOL PO PRN (10:22)
[2017-08-04] MEDS ORDERED: PHENERGAN PR PRN (10:22)
[2017-08-04] MEDS ORDERED: PHENERGAN PO PRN (10:22)
[2017-08-04] MEDS ORDERED: NORCO 5/325 PO PRN (10:22)
[2017-08-04] MEDS ORDERED: SODIUM CHLORIDE FLUSH SYRINGE 10 ML IV NR (11:00)
[2017-08-04] MEDS: LACTATED RINGERS 1,000 ML IV SCH (20:04)
[2017-08-04] MEDS: MOTRIN PO SCH (23:20)
[2017-08-04 23:55] LABS: Hematocrit 26.1 % (30.3-42.9); Hemoglobin 8.3 gm/dl (10.1-14.3)
[2017-08-05 00:12] LABS: Alanine Aminotransferase 34 units/L (7-56)
[2017-08-05] MEDS ORDERED: MAGNESIUM SULFATE 40GM/1000ML 40 GM/1,000 ML BAG IV SCH (01:00)
[2017-08-05 01:16] LABS: Uric Acid 5.4 mg/dL (3.5-7.6)
[2017-08-05] MEDS: MOTRIN PO SCH ×3 (06:24→18:43)
[2017-08-05] MEDS: LACTATED RINGERS 1,000 ML IV SCH (06:25)
[2017-08-05] MEDS ORDERED: DERMOPLAST TP PRN (10:50)
[2017-08-05] MEDS: TUCKS PAD TP PRN ×2 (11:53→23:30)
--- NOTE | 2017-08-05 15:18 | Progress Note ---
Assessment and Plan A: PPD#1 s/p at 36 wks Chronic HTN with superimposed preeclampsia s/p Mag Sulfate for 24 hrs after delivery Nephrotic Syndrome P: Routine care. Restart BP meds. Anticipate discharge tomorrow. 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 Magnesium discontinued this morning. Patient reports: appetite normal, voiding normally, pain well controlled, ambulating normally : doing well Objective - Vital Signs Latest vital signs: Vital Signs Temp Pulse Resp BP BP Pulse Ox 08/05/17 10:12 98.5 F 79 20 157/85 93 08/05/17 07:44 99.1 F 90 18 148/83 96 08/05/17 04:35 99.0 F 94 H 18 150/88 94 08/05/17 02:30 81 150/92 08/05/17 00:20 98.8 F 96 H 18 139/85 94 08/04/17 22:25 97.9 F 100 H 18 141/86 95 08/04/17 17:09 99.5 F 118 H 18 146/93 99 Intake and Output 08/05/17 08/05/17 08/05/17 06:59 14:59 22:59 Intake Total 1240 360 Output Total 800 1300 Balance 440 -940 Intake: IV 1000 Lactated Ringers 1,000 ml 1000 @ 125 mls/hr IV DIRECT CALISTA Rx#:[id number] Oral 240 360 Output: Urine 800 1300 Indwelling Catheter 800 1300 Other: Total, Intake Amount 120 360 Total, Output Amount 800 1300 - Exam Breasts: Present: deferred Cardiovascular: Present: Regular rate Lungs: Present: Clear to auscultation Abdomen: Present: soft Uterus: Present: fundal height below umbilicus Extremities: Present: normal - Labs Labs: Abnormal lab results 08/04/17 08/04/17 08/04/17 Range/Units 23:31 23:31 23:31 Hgb 8.3 L (10.1-14.3) gm/dl Hct 26.1 L (30.3-42.9) % Magnesium 4.40 H (1.7-2.3) mg/dL Lactate Dehydrogenase 236 H (91-180) units/L 08/05/17 Range/Units 05:37 Hgb (10.1-14.3) gm/dl Hct (30.3-42.9) % Magnesium 4.70 H (1.7-2.3) mg/dL Lactate Dehydrogenase (91-180) units/L
--- NOTE | 2017-08-05 15:21 | Discharge Summary ---
Providers - Providers Date of Admission: 08/02/17 20:05 Date of discharge: 08/05/17 Attending physician: ROXY COMER Primary care physician: ROXY COMER Hospitalization Reason for admission: induction of labor, other (elevated blood pressure ) Delivery: Procedure details: Please see operative note. Laceration: 2nd degree Other procedures: none complications: none Discharge diagnosis: delivery baby: male Hospital course: Pt was admitted for chronic hypertension with superimposed preeclampsia, underwent induction of labor and went on to have a spontaneous vaginal delivery which she tolerated well. Her course was uncomplicated and she met discharge criteria on PPD#2. She will follow up in 1 week for a blood pressure check. Condition at discharge: Stable Disposition: - TO HOME OR SELFCARE - Discharge Diagnoses (1) delivery Status: Acute (2) Chronic hypertension with superimposed preeclampsia Status: Acute (3) IUGR (intrauterine growth restriction) Status: Acute (4) Nephrotic syndrome Status: Acute Plan - Discharge Medications Prescriptions: Ferrous Sulfate [Feosol 325 MG tab] 325 mg PO BID #60 tablet HYDROcodone/ACETAMINOPHEN [[place] 5-325 Tablet] 1 each PO Q6H PRN #20 tablet PRN Reason: Pain Ibuprofen [Motrin 600 MG tab] 600 mg PO Q6H PRN #30 tablet PRN Reason: Pain Methyldopa [Aldomet] 250 mg PO TID #60 tablet NIFEdipine XL [Procardia Xl] 30 mg PO QDAY #30 tablet - Provider Discharge Summary Activity: routine, no sex for 6 weeks, no heavy lifting 4 weeks, no strenuous exercise Diet: routine Instructions: routine Additional instructions: [] Smoking cessation referral if applicable(refer to patient education folder for contact #) [] Refer to [facility] Book[facility] Call your doctor immediately for: * Fever > 100.5 * Heavy vaginal bleeding ( >1 pad per hour) * Severe persistent headache * Shortness of breath * Reddened, hot, painful area to leg or breast * Drainage or odor from incision. * Keep incision clean and dry at all times and follow doctor's instructions regarding bathing/showering PLEASE SCHEDULE YOUR SON'S CIRCUMCISION BEFORE HE IN ONE MONTH OLD. - Follow up plan Follow up: ROXY COMER MD [Primary Care Provider] - 08/15/17 (BLOOD PRESSURE CHECK )
[2017-08-05] MEDS: ALDOMET PO SCH (19:55)
[2017-08-06] MEDS: MOTRIN PO SCH ×2 (00:24→09:24)
[2017-08-06] MEDS: ALDOMET PO SCH ×2 (05:55→13:10)
[2017-08-06] MEDS ORDERED: PROCARDIA XL PO SCH ×5 (10:00→22:00)
[2017-08-06 15:01] VITALS: BP 138/90
[2017-08-06] MEDS: TUCKS PAD TP PRN (15:48)
== END 2017-08-06 16:35 | disposition home or self-care (01) | DRG 774 ==
LOC: TRG 17:56 → LD 17:57 → TRG 20:04 → LD 20:05 → OBSVTOIN 20:05 → OB 08-04 12:22
PROVIDERS: ADMIT Obstetrics & Gynecology; ATTEND Obstetrics & Gynecology
PROC: 0KQM0ZZ Repair Perineum Muscle, Open Approach (ICD-10-PCS; principal; 2017-08-04)
PROC: 10E0XZZ Delivery of Products of Conception, External Approach (ICD-10-PCS; 2017-08-04)
PROC: 3E0R3BZ Introduction of Anesthetic Agent into Spinal Canal, Percutaneous Approach (ICD-10-PCS; 2017-08-04)
PROC: 00HU33Z Insertion of Infusion Device into Spinal Canal, Percutaneous Approach (ICD-10-PCS; 2017-08-04)
PROC: 3E033VJ Introduction of Other Hormone into Peripheral Vein, Percutaneous Approach (ICD-10-PCS; 2017-08-04)
DX: O60.14X0 Preterm labor third trimester with preterm delivery third trimester, not applicable or unspecified (principal); O10.92 Unspecified pre-existing hypertension complicating childbirth; O26.833 Pregnancy related renal disease, third trimester; N04.8 Nephrotic syndrome with other morphologic changes; N28.9 Disorder of kidney and ureter, unspecified; O70.1 Second degree perineal laceration during delivery; O36.5930 Maternal care for other known or suspected poor fetal growth, third trimester, not applicable or unspecified; O99.824 Streptococcus B carrier state complicating childbirth; Z37.0 Single live birth; Z79.899 Other long term (current) drug therapy; Z3A.36 36 weeks gestation of pregnancy; O11.4 Pre-existing hypertension with pre-eclampsia, complicating childbirth
CPT/HCPCS: 36415; 59200; 80074; 81001; 82565; 83615; 83735; 84450; 84460; 84550; 85014; 85018; 85027; 86850; 86900; 86901; 88307; 99211; G0463; J0290; J0360; J0595; J0702; J2590; J3475; J7030; J7120

== ENCOUNTER 2018-06-06 14:52 | Emergency (ER) | payer BC, MEDICAID ==
--- NOTE | 2018-06-06 15:43 | Emergency Department Report ---
Blank Doc - Documentation Documentation: 27 y o female with hx of HTN, stroke last year presents with 4/10 intermittent sharp pain mid chest pain that radiates to back LMP - 05/26/18 Denies beltran, dizziness and sob EXAM: tender to palp of mid chest PLAN: cxr, fast track
--- NOTE | 2018-06-06 16:15 | XRay Report ---
FINAL REPORT EXAM: XRAY CHEST 2 VIEWS HISTORY: cough TECHNIQUE: upright single view chest PRIORS: None. FINDINGS: Cardiac and mediastinal contours are unremarkable. No focal pulmonary infiltrate is identified. No pleural fluid collection seen. Pulmonary vasculature is unremarkable. IMPRESSION: Negative single-view chest
--- NOTE | 2018-06-06 17:25 | Emergency Department Report ---
ED Chest Pain HPI - General Chief Complaint: Chest Pain Stated Complaint: CHEST PAIN/LBP Time Seen by Provider: 06/06/18 15:37 Source: patient Mode of arrival: Ambulatory Limitations: No Limitations - History of Present Illness Initial Comments: Patient is 27 years old female with history of stroke was no residual, history of nephrotic syndrome. Patient presented to the ER complaining of some standard chest pain, sharp in nature associated with shortness of breath. Patient also stated that she's been having some is swelling and right leg since yesterday. She denied any cough or fever. MD Complaint: chest pain Onset: during rest Pain Location: substernal Severity scale (0 -10): 4 Quality: sharp - Related Data Previous Rx's Medication Instructions Recorded Last Taken Type Ferrous Sulfate [Feosol 325 MG tab] 325 mg PO BID #60 tablet 08/04/17 Unknown Rx HYDROcodone/ACETAMINOPHEN [[place] 1 each PO Q6H PRN #20 tablet 08/04/17 Unknown Rx 5-325 Tablet] Ibuprofen [Motrin 600 MG tab] 600 mg PO Q6H PRN #30 tablet 08/04/17 Unknown Rx Methyldopa [Aldomet] 250 mg PO TID #60 tablet 08/04/17 Unknown Rx NIFEdipine XL [Procardia Xl] 30 mg PO QDAY #30 tablet 08/04/17 Unknown Rx Allergies Allergy/AdvReac Type Severity Reaction Status Date / Time No Known Allergies Allergy Verified 06/06/18 15:38 Heart Score - HEART Score History: Slightly suspicious EKG: Normal Age: < 45 Risk factors: 1-2 risk factors Troponin: < normal limit HEART Score: 1 - Critical Actions Critical Actions: 0-3 pts:0.9-1.7%risk of adverse cardiac event.Candidate for discharge ED Review of Systems ROS: Stated complaint: CHEST PAIN/LBP Other details as noted in HPI Comment: All other systems reviewed and negative Eyes: denies: eye pain Cardiovascular: chest pain. denies: palpitations, dyspnea on exertion, orthopnea, edema, syncope, paroxysmal nocturnal dyspnea Gastrointestinal: denies: abdominal pain, nausea Neurological: denies: headache, weakness, numbness, paresthesias, confusion, abnormal gait ED Past Medical Hx - Past Medical History Previous Medical History?: Yes Hx Hypertension: Yes Hx CVA: Yes (08/2017) Hx Congestive Heart Failure: No Hx Diabetes: No Hx Deep Vein Thrombosis: No Hx Renal Disease: Yes (2009) Hx Sickle Cell Disease: No Hx Seizures: No Hx Asthma: No Hx COPD: No Hx HIV: No Additional medical history: Nephrotic syndrome - Surgical History Past Surgical History?: No Hx Coronary Stent: No Hx Pacemaker: No Hx Internal Defibrillator: No - Social History Smoking Status: Never Smoker Substance Use Type: None - Medications Home Medications: Home Medications Medication Instructions Recorded Confirmed Last Taken Type Ferrous Sulfate [Feosol 325 MG tab] 325 mg PO BID #60 tablet 08/04/17 Unknown Rx HYDROcodone/ACETAMINOPHEN [[place] 1 each PO Q6H PRN #20 tablet 08/04/17 Unknown Rx 5-325 Tablet] Ibuprofen [Motrin 600 MG tab] 600 mg PO Q6H PRN #30 tablet 08/04/17 Unknown Rx Methyldopa [Aldomet] 250 mg PO TID #60 tablet 08/04/17 Unknown Rx NIFEdipine XL [Procardia Xl] 30 mg PO QDAY #30 tablet 08/04/17 Unknown Rx ED Physical Exam - General Limitations: No Limitations General appearance: alert, in no apparent distress - Head Head exam: Present: atraumatic, normocephalic, normal inspection - Eye Eye exam: Present: normal appearance, PERRL - ENT ENT exam: Present: normal exam, normal orophraynx, mucous membranes moist - Neck Neck exam: Present: normal inspection, full ROM. Absent: tenderness, meningismus, lymphadenopathy, thyromegaly - Respiratory Respiratory exam: Present: normal lung sounds bilaterally. Absent: respiratory distress, wheezes, rales, rhonchi, stridor, chest wall tenderness, accessory muscle use, decreased breath sounds, prolonged expiratory - Cardiovascular Cardiovascular Exam: Present: regular rate, normal rhythm, normal heart sounds - GI/Abdominal GI/Abdominal exam: Present: soft, normal bowel sounds. Absent: distended, tenderness, guarding, rebound, rigid, organomegaly, mass, bruit, pulsatile mass, hernia - Extremities Exam Extremities exam: Present: normal inspection, full ROM, normal capillary refill - Back Exam Back exam: Present: normal inspection, full ROM. Absent: tenderness, CVA tenderness (R), CVA tenderness (L), muscle spasm, paraspinal tenderness, vertebral tenderness - Neurological Exam Neurological exam: Present: alert, oriented X3, CN II-XII intact, normal gait, reflexes normal - Psychiatric Psychiatric exam: Present: normal affect, normal mood - Skin Skin exam: Present: warm, intact, normal color ED Course Vital Signs 06/06/18 15:22 Temperature 98.6 F Pulse Rate 81 Respiratory 18 Rate Blood Pressure 133/80 [Right] O2 Sat by Pulse 99 Oximetry ED Medical Decision Making - Lab Data Result diagrams: 06/06/18 17:29 06/06/18 17:29 - EKG Data -: EKG Interpreted by Ga EKG shows normal: sinus rhythm Rate: normal - EKG Data Interpretation: no acute changes - Radiology Data Radiology results: report reviewed - Medical Decision Making Patient is 27 years old female with history of stroke was no residual, history of nephrotic syndrome. Patient presented to the ER complaining of some standard chest pain, sharp in nature associated with shortness of breath. Patient also stated that she's been having some is swelling and right leg since yesterday. She denied any cough or fever. EKG is unremarkable. Chest x-ray is negative. Patient d-dimer is 135. Patient had negative Homans sign. No evidence of DVT or pulmonary embolism. I advised the patient to follow up with her primary care physician in the next 2-3 days and to return to the ER if symptoms did not improve. Critical care attestation.: If time is entered above; I have spent that time in minutes in the direct care of this critically ill patient, excluding procedure time. ED Disposition Clinical Impression: Nephrotic syndrome, Atypical chest pain Disposition: DC-01 TO HOME OR SELFCARE Is pt being admited?: No Condition: Stable Instructions: Chest Pain (ED) Referrals: JAVIER NAILS DO [Primary Care Provider] - 3-5 Days
[2018-06-06 18:05] LABS: INR 1.07 (0.87-1.13); Partial Thromboplastin Time 29.3 Sec. (24.2-36.6)
[2018-06-06 18:07] LABS: Alanine Aminotransferase 11 units/L (7-56); Albumin 4.6 g/dL (3.9-5); BUN/Creatinine Ratio 10; Blood Urea Nitrogen 9 mg/dL (7-17); Calcium 9.2 mg/dL (8.4-10.2); Hemolysis Index 30
[2018-06-06 18:20] LABS: Basophils % (Auto) 0.5 % (0.0-1.8); Eosinophils # (Auto) 0.1 K/mm3 (0.0-0.4); Eosinophils % (Auto) 1.7 % (0.0-4.3); Hematocrit 35.7 % (30.3-42.9); Hemoglobin 11.6 gm/dl (10.1-14.3); Lymphocytes # (Auto) 1.7 K/mm3 (1.2-5.4); Lymphocytes % (Auto) 31.6 % (13.4-35.0); Mean Corpuscular HGB Conc 32 % (30-34); Mean Corpuscular Volume 85 fl (79-97); Monocytes # (Auto) 0.4 K/mm3 (0.0-0.8); Monocytes % (Auto) 6.8 % (0.0-7.3); Platelet Count 343 K/mm3 (140-440); Red Blood Count 4.23 M/mm3 (3.65-5.03); Red Cell Distribution Width 16.3 % (13.2-15.2)
[2018-06-06 19:57] VITALS: BP 144/92
== END 2018-06-06 19:40 | disposition home or self-care (01) ==
LOC: ED 14:52
DX: R07.89 Other chest pain (principal); N04.9 Nephrotic syndrome with unspecified morphologic changes; I10 Essential (primary) hypertension; Z86.73 Personal history of transient ischemic attack (TIA), and cerebral infarction without residual deficits
CPT/HCPCS: 36415; 71046; 80053; 84703; 85025; 85379; 85610; 85730; 93005; 93010

== ENCOUNTER 2018-09-25 02:47 | Emergency (ER) | payer BC ==
[2018-09-25] MEDS ORDERED: CATAPRES ONE (03:09)
[2018-09-25] MEDS ORDERED: CATAPRES PO ONE (03:11)
[2018-09-25 03:41] LABS: Basophils % (Auto) 0.6 % (0.0-1.8); Eosinophils # (Auto) 0.1 K/mm3 (0.0-0.4); Eosinophils % (Auto) 1.8 % (0.0-4.3); Hematocrit 42.2 % (30.3-42.9); Hemoglobin 13.8 gm/dl (10.1-14.3); Lymphocytes # (Auto) 2.6 K/mm3 (1.2-5.4); Mean Corpuscular HGB Conc 33 % (30-34); Mean Corpuscular Volume 84 fl (79-97); Monocytes # (Auto) 0.4 K/mm3 (0.0-0.8); Monocytes % (Auto) 6.7 % (0.0-7.3); Platelet Count 269 K/mm3 (140-440); Red Blood Count 5.03 M/mm3 (3.65-5.03); Red Cell Distribution Width 17.1 % (13.2-15.2)
[2018-09-25 03:52] LABS: Bilirubin,Urine NEG (Negative); Blood,Urine NEG (Negative); Color,Urine Colorless (Yellow); Urobilinogen,Urine < 2.0 mg/dL (<2.0)
[2018-09-25 03:53] LABS: BUN/Creatinine Ratio 24; Blood Urea Nitrogen 17 mg/dL (7-17); Calcium 9.6 mg/dL (8.4-10.2); Hemolysis Index 13
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
--- NOTE | 2018-09-25 04:44 | XRay Report ---
PROCEDURE: XR SPINE CERVICAL 2-3V TECHNIQUE: Cevical spine, AP, lateral and odontoid views. HISTORY: neck injury COMPARISONS: None . FINDINGS: Prevertebral soft tissues: Normal . Alignment: Normal . Vertebral body heights/Disk spaces: Normal . Fracture(s): None . Facets: Normal . Bone mineralization: Normal . IMPRESSION: Normal Examination . This document is electronically signed by Daniela Grove DO., Sep 25 2018 04:41:45 AM ET
--- NOTE | 2018-09-25 05:22 | Cat Scan Report ---
PROCEDURE: CT HEAD/BRAIN WO CON TECHNIQUE: Computerized tomography of the head was performed without contrast material. HISTORY: elevated BP /HITCHCOCK COMPARISONS: None . FINDINGS: Right posterior parietal encephalomalacia. The ventricles, cisterns and sulci are otherwise within no rmal limits. No intra parenchymal or extra-axial mass, hemorrhage, or mass effect. Quan and white-m atter differentiation is otherwise within normal limits. Normal spherical shape of the globes. The imaged portions of the paranasal sinuses and mastoid air ce lls are clear. No skull or facial fracture visualized. IMPRESSION: Age indeterminant findings of right posterior parietal stroke. Follow-up MRI is recommended if not pr eviously documented. There is no acute intracranial hemorrhage or mass effect. Notification initiated via Drew user support analyst supervisor immediately following this dictation on 09/25/2018. This document is electronically signed by Abel Lima MD., Sep 25 2018 05:20:53 AM ET
[2018-09-25 06:24] VITALS: BP 111/70
== END 2018-09-25 06:35 | disposition home or self-care (01) ==
LOC: ED 02:47
DX: S09.90XA Unspecified injury of head, initial encounter (principal); S19.9XXA Unspecified injury of neck, initial encounter; I10 Essential (primary) hypertension; I25.2 Old myocardial infarction; V49.9XXA Car occupant (driver) (passenger) injured in unspecified traffic accident, initial encounter; Y93.89 Activity, other specified; Y92.488 Other paved roadways as the place of occurrence of the external cause; Y99.8 Other external cause status
CPT/HCPCS: 36415; 70450; 72040; 80048; 81001; 84703; 85025; 93005; 93010

== ENCOUNTER 2019-02-28 10:25 | Observation (INO) | payer BC ==
[2019-02-28] MEDS ORDERED: levETIRAcetam 1000 MG/NS 0.75% 1,000 MG/100 ML BAG IV ONE (10:47)
--- NOTE | 2019-02-28 10:57 | Cat Scan Report ---
CT BRAIN: 02/28/2019 INDICATION / CLINICAL INFORMATION: Stroke.. COMPARISON: None available. FINDINGS: BRAIN/INTRACRANIAL STRUCTURES: Unenhanced CT images of the brain were obtained. There is a focal area of encephalomalacia in the right parietal cortex, consistent with old ischemic injury. There is no evidence of acute ischemic injury, hemorrhage, or mass. Ventricles and sulci are normal in size and shape. There are no abnormal extra-axial fluid collection s. EXTRACRANIAL STRUCTURES: Unremarkable. IMPRESSION: No evidence of acute abnormality. Chronic appearing right parietal cortical encephalomalacia. No jeaneth dence of hemorrhage. These findings were discussed with the emergency physician at [address] scans at this location are performed using dose reduction to ALARA by means of automated expos ure control. Signer Name: Jose M Gomes MD Signed: 02/28/2019 10:53 AM Workstation Name: [id number]
[2019-02-28 11:17] LABS: Basophils % (Auto) 0.5 % (0.0-1.8); Eosinophils # (Auto) 0.1 K/mm3 (0.0-0.4); Eosinophils % (Auto) 2.1 % (0.0-4.3); Hematocrit 40.5 % (30.3-42.9); Hemoglobin 13.4 gm/dl (10.1-14.3); Lymphocytes # (Auto) 1.6 K/mm3 (1.2-5.4); Lymphocytes % (Auto) 37.3 % (13.4-35.0); Mean Corpuscular HGB Conc 33 % (30-34); Mean Corpuscular Volume 86 fl (79-97); Monocytes # (Auto) 0.2 K/mm3 (0.0-0.8); Monocytes % (Auto) 5.9 % (0.0-7.3); Platelet Count 314 K/mm3 (140-440); Red Cell Distribution Width 14.8 % (13.2-15.2)
[2019-02-28 11:18] LABS: BUN/Creatinine Ratio 12; Blood Urea Nitrogen 11 mg/dL (7-17); Calcium 9.3 mg/dL (8.4-10.2); Hemolysis Index 2
[2019-02-28 11:19] LABS: INR 0.98 (0.87-1.13)
[2019-02-28 11:21] LABS: Partial Thromboplastin Time 26.6 Sec. (24.2-36.6)
--- NOTE | 2019-02-28 11:22 | Emergency Department Report ---
ED Neuro Deficit HPI - General Stated Complaint: POSS CVA Time Seen by Provider: 02/28/19 10:38 - History of Present Illness Initial Comments: [facility] Tele[facility] Date of Service: 02/28/2019 10:19:58 Impression: RO Acute Ischemic Stroke Comments: acute onset LOC without convulsion - DDx syncope vs seizure favored over stroke. Recommend admission for stroke workup. Mechanism of Stroke: Possible Thromboembolic Possible Cardioembolic Small Vessel Disease Metrics: Last Known Well: 02/28/2019 10:30:00 [employer] Notification Time: 02/28/2019 10:19:09 Arrival Time: 02/28/2019 10:25:00 Stamp Time: 02/28/2019 10:19:58 Time First Login Attempt: 02/28/2019 10:28:39 Video Start Time: 02/28/2019 10:33:05 Symptoms: LOC NIHSS Start Assessment Time: 02/28/2019 10:40:22 Patient is not a candidate for tPA. Patient was not deemed candidate for tPA thrombolytics because of back to baseline. Video End Time: 02/28/2019 10:50:44 CT head showed no acute hemorrhage or acute core infarct. Advanced imaging was not obtained as the presentation was not suggestive of Large Vessel Occlusive Disease. ER physician notified of the decision on thrombolytics management. Our recommendations are outlined below. Recommendations: Initiate Aspirin 81 MG Daily Recommended Scan: MRI Head MRA Head and Neck Without Contrast When Available - Stroke Protocol Lipid Panel to Be Obtained, if Not Done in the Last Three Months Therapies: Physical Therapy, Occupational Therapy, Speech Therapy Assessment When Applicable Dysphaghia Screen: Swallow Evaluation, Bedside NPO Until Swallow Evaluation DVT prophylaxis: Lovenox or LMW Heparin Disposition: Follow up with Teleneurology Follow up Sign Out: Discussed with Emergency Department Provider History of Present Illness: Patient is a 28 years old Female. Patient was brought by EMS for symptoms of LOC 28 yo woman with acute onset LOC while standing; she sat back down on the couch. She was told she stroke last year after having several falls. She states that she could not feel her tongue. She was unconscious for approx several seconds. No loss of b/b control or tongue biting. Her mother noted that she was drooling, but did not note convulsion. She takes a baby ASA daily. CT head showed no acute hemorrhage or acute core infarct. Examination: 1A: Level of Consciousness - Alert; keenly responsive + 0 1B: Ask Month and Age - Both Questions Right + 0 1C: Blink Eyes & Squeeze Hands - Performs Both Tasks + 0 2: Test Horizontal Extraocular Movements - Normal + 0 3: Test Visual Valdovinos - No Visual Loss + 0 4: Test Facial Palsy (Use Grimace if Obtunded) - Normal symmetry + 0 5A: Test Left Arm Motor Drift - No Drift for 10 Seconds + 0 5B: Test Right Arm Motor Drift - No Drift for 10 Seconds + 0 6A: Test Left Leg Motor Drift - No Drift for 5 Seconds + 0 6B: Test Right Leg Motor Drift - No Drift for 5 Seconds + 0 7: Test Limb Ataxia (FNF/Heel-Horne) - No Ataxia + 0 8: Test Sensation - Normal; No sensory loss + 0 9: Test Language/Aphasia - Normal; No aphasia + 0 10: Test Dysarthria - Normal + 0 11: Test Extinction/Inattention - No abnormality + 0 NIHSS Score: 0 Patient was informed the Neurology Consult would happen via TeleHealth consult by way of interactive audio and video telecommunications and consented to receiving care in this manner. Due to the immediate potential for life-threatening deterioration due to underlying acute neurologic illness, I spent 35 minutes providing critical care. This time includes time for face to face visit via telemedicine, review of medical records, imaging studies and discussion of findings with providers, the patient and/or family. Dr Terrence Jimenez [employer] - Related Data Home Medications: Previous Rx's Medication Instructions Recorded Last Taken Type Methyldopa [Aldomet] 250 mg PO TID #60 tablet 08/04/17 09/23/18 Rx NIFEdipine XL [Procardia Xl] 30 mg PO QDAY #30 tablet 08/04/17 09/24/18 Rx Cyclobenzaprine HCl [Flexeril 5 MG 5 mg PO TID PRN #21 tab 09/25/18 Unknown Rx TAB] Naproxen [Naprosyn] 500 mg PO BID #14 tablet 09/25/18 Unknown Rx Allergies/Adverse Reactions: Allergies Allergy/AdvReac Type Severity Reaction Status Date / Time No Known Allergies Allergy Verified 06/06/18 15:38 ED Review of Systems ROS: Stated complaint: POSS CVA Other details as noted in HPI ED Past Medical Hx - Past Medical History Hx Hypertension: Yes Hx CVA: Yes (08/2017) Hx Congestive Heart Failure: No Hx Diabetes: No Hx Deep Vein Thrombosis: No Hx Renal Disease: Yes (2009) Hx Sickle Cell Disease: No Hx Seizures: No Hx Asthma: No Hx COPD: No Hx HIV: No Additional medical history: Nephrotic syndrome - Surgical History Hx Coronary Stent: No Hx Pacemaker: No Hx Internal Defibrillator: No - Social History Smoking Status: Never Smoker Substance Use Type: None - Medications Home Medications: Home Medications Medication Instructions Recorded Confirmed Last Taken Type Methyldopa [Aldomet] 250 mg PO TID #60 tablet 08/04/17 09/25/18 09/23/18 Rx NIFEdipine XL [Procardia Xl] 30 mg PO QDAY #30 tablet 08/04/17 09/25/18 09/24/18 Rx Cyclobenzaprine HCl [Flexeril 5 MG 5 mg PO TID PRN #21 tab 09/25/18 Unknown Rx TAB] Naproxen [Naprosyn] 500 mg PO BID #14 tablet 09/25/18 Unknown Rx ED Neuro Physical Exam - General Suspected Stroke: Yes - NIHSS Assessment Interval: Baseline 1a. Level of Consciousness: alert/keenly responsive 1b. LOC Questions: answers both correctly 1c. LOC Commands: performs tasks correctly 2. Best Gaze: normal 3. Visual: no visual loss 4. Facial Palsy: normal symmetrical movement 5b. Motor Arm Right: no drift 5a. Motor Arm Left: no drift 6a. Motor Leg Left: no drift 6b. Motor Leg Right: no drift 7. Limb Ataxia: absent 8. Sensory: normal 9. Best Language: no aphasia 10. Dysarthria: normal 11. Extinction/Inattention: no abnormality Total Score: 0 Stroke Severity: No Stroke Symptoms - Lab Data Result diagrams: 02/28/19 10:37 02/28/19 10:37 Lab Results 02/28/19 02/28/19 02/28/19 Range/Units 10:37 10:37 10:37 WBC 4.2 L (4.5-11.0) K/mm3 RBC 4.70 (3.65-5.03) M/mm3 Hgb 13.4 (10.1-14.3) gm/dl Hct 40.5 (30.3-42.9) % MCV 86 (79-97) fl MCH 29 (28-32) pg MCHC 33 (30-34) % RDW 14.8 (13.2-15.2) % Plt Count 314 (140-440) K/mm3 Lymph % (Auto) 37.3 H (13.4-35.0) % [place] % (Auto) 5.9 (0.0-7.3) % Eos % (Auto) 2.1 (0.0-4.3) % Baso % (Auto) 0.5 (0.0-1.8) % Lymph # 1.6 (1.2-5.4) K/mm3 [place] # 0.2 (0.0-0.8) K/mm3 Eos # 0.1 (0.0-0.4) K/mm3 Baso # 0.0 (0.0-0.1) K/mm3 Seg Neutrophils % 54.2 (40.0-70.0) % Seg Neutrophils # 2.3 (1.8-7.7) K/mm3 PT 12.9 (12.2-14.9) Sec. INR 0.98 (0.87-1.13) Sodium 141 (137-145) mmol/L Potassium 3.3 L (3.6-5.0) mmol/L Chloride 101.2 (98-107) mmol/L Carbon Dioxide 25 (22-30) mmol/L Anion Gap 18 mmol/L BUN 11 (7-17) mg/dL Creatinine 0.9 (0.7-1.2) mg/dL Estimated GFR > 60 ml/min BUN/Creatinine Ratio 12 % Glucose 91 (65-100) mg/dL POC Glucose (70-105) Lactic Acid (0.7-2.0) mmol/L Calcium 9.3 (8.4-10.2) mg/dL Troponin T < 0.010 (0.00-0.029) ng/mL 02/28/19 02/28/19 Range/Units 10:39 10:45 WBC (4.5-11.0) K/mm3 RBC (3.65-5.03) M/mm3 Hgb (10.1-14.3) gm/dl Hct (30.3-42.9) % MCV (79-97) fl MCH (28-32) pg MCHC (30-34) % RDW (13.2-15.2) % Plt Count (140-440) K/mm3 Lymph % (Auto) (13.4-35.0) % [place] % (Auto) (0.0-7.3) % Eos % (Auto) (0.0-4.3) % Baso % (Auto) (0.0-1.8) % Lymph # (1.2-5.4) K/mm3 [place] # (0.0-0.8) K/mm3 Eos # (0.0-0.4) K/mm3 Baso # (0.0-0.1) K/mm3 Seg Neutrophils % (40.0-70.0) % Seg Neutrophils # (1.8-7.7) K/mm3 PT (12.2-14.9) Sec. INR (0.87-1.13) Sodium (137-145) mmol/L Potassium (3.6-5.0) mmol/L Chloride (98-107) mmol/L Carbon Dioxide (22-30) mmol/L Anion Gap mmol/L BUN (7-17) mg/dL Creatinine (0.7-1.2) mg/dL Estimated GFR ml/min BUN/Creatinine Ratio % Glucose (65-100) mg/dL POC Glucose 79 (70-105) Lactic Acid 0.90 (0.7-2.0) mmol/L Calcium (8.4-10.2) mg/dL Troponin T (0.00-0.029) ng/mL Critical care attestation.: If time is entered above; I have spent that time in minutes in the direct care of this critically ill patient, excluding procedure time. ED Disposition Clinical Impression: LOC (loss of consciousness) Disposition: OP ADMIT IP TO THIS HOSP Is pt being admited?: Yes Condition: Stable
[2019-02-28 11:25] LABS: Thrombin Time 15.8 Sec. (15.1-19.6)
[2019-02-28 12:08] LABS: Alanine Aminotransferase 10 units/L (7-56); Bilirubin,Direct < 0.2 mg/dL (0-0.2)
--- NOTE | 2019-02-28 12:11 | Emergency Department Report ---
ED Neuro Deficit HPI - General Chief Complaint: Neuro Symptoms/Deficit Stated Complaint: POSS CVA Time Seen by Provider: 02/28/19 10:38 Source: EMS Mode of arrival: Stretcher Limitations: No Limitations - History of Present Illness Initial Comments: 28 yo woman with acute onset LOC while standing; she sat back down on the couch. She was told she stroke last year after having several falls. She states that she could not feel her tongue. She was unconscious for approx several seconds. No loss of b/b control or tongue biting. Her grandmother in-law noted that she was drooling, but did not note convulsion. She takes a baby ASA daily. Patient reports that she has had a history of a stroke and was seen at [facility]. Patient is unaware of what type of stroke that she had. Location: left face Presenting Symptoms: Present: Facial Droop/Numbness History of same: Yes Place: home Severity: mild Quality: improving Improves With: none Worsens With: none On Anticoagulants: Yes (asa) Context: gradual onset Associated Symptoms: denies: chest pain, cough, diaphoresis, fever/chills, headaches, loss of appetite, malise, nausea/vomiting, vertigo, seizures - Related Data Home Medications: Previous Rx's Medication Instructions Recorded Last Taken Type Methyldopa [Aldomet] 250 mg PO TID #60 tablet 08/04/17 09/23/18 Rx NIFEdipine XL [Procardia Xl] 30 mg PO QDAY #30 tablet 08/04/17 09/24/18 Rx Cyclobenzaprine HCl [Flexeril 5 MG 5 mg PO TID PRN #21 tab 09/25/18 Unknown Rx TAB] Naproxen [Naprosyn] 500 mg PO BID #14 tablet 09/25/18 Unknown Rx Allergies/Adverse Reactions: Allergies Allergy/AdvReac Type Severity Reaction Status Date / Time No Known Allergies Allergy Verified 06/06/18 15:38 ED Review of Systems ROS: Stated complaint: POSS CVA Other details as noted in HPI Comment: All other systems reviewed and negative Constitutional: denies: chills, fever Eyes: denies: eye pain, eye discharge, vision change ENT: denies: ear pain, throat pain Respiratory: denies: cough, shortness of breath, wheezing Cardiovascular: denies: chest pain, palpitations Endocrine: no symptoms reported Gastrointestinal: denies: abdominal pain, nausea, diarrhea Genitourinary: denies: urgency, dysuria, discharge Musculoskeletal: denies: back pain, joint swelling, arthralgia Skin: denies: rash, lesions Neurological: denies: headache, weakness, paresthesias Psychiatric: denies: anxiety, depression Hematological/Lymphatic: denies: easy bleeding, easy bruising ED Past Medical Hx - Past Medical History Hx Hypertension: Yes Hx CVA: Yes (08/2017) Hx Congestive Heart Failure: No Hx Diabetes: No Hx Deep Vein Thrombosis: No Hx Renal Disease: Yes (2009) Hx Sickle Cell Disease: No Hx Seizures: No Hx Asthma: No Hx COPD: No Hx HIV: No Additional medical history: Nephrotic syndrome - Surgical History Hx Coronary Stent: No Hx Pacemaker: No Hx Internal Defibrillator: No - Social History Smoking Status: Never Smoker Substance Use Type: None - Medications Home Medications: Home Medications Medication Instructions Recorded Confirmed Last Taken Type Methyldopa [Aldomet] 250 mg PO TID #60 tablet 08/04/17 09/25/18 09/23/18 Rx NIFEdipine XL [Procardia Xl] 30 mg PO QDAY #30 tablet 08/04/17 09/25/18 09/24/18 Rx Cyclobenzaprine HCl [Flexeril 5 MG 5 mg PO TID PRN #21 tab 09/25/18 Unknown Rx TAB] Naproxen [Naprosyn] 500 mg PO BID #14 tablet 09/25/18 Unknown Rx ED Neuro Physical Exam - General Limitations: No Limitations General appearance: alert Suspected Stroke: Yes - Head Head exam: Present: atraumatic, normocephalic - Eye Eye exam: Present: normal appearance - ENT ENT exam: Present: mucous membranes moist - Respiratory Respiratory exam: Present: normal lung sounds bilaterally. Absent: respiratory distress - Cardiovascular Cardiovascular Exam: Present: regular rate, normal rhythm. Absent: systolic murmur, diastolic murmur, rubs, gallop - GI/Abdominal GI/Abdominal exam: Present: soft, normal bowel sounds. Absent: distended, tenderness - Neurological Exam Neurological exam: Present: alert, oriented X3 - NIHSS Assessment Interval: Baseline 1a. Level of Consciousness: alert/keenly responsive 1b. LOC Questions: answers both correctly 1c. LOC Commands: performs tasks correctly 2. Best Gaze: normal 3. Visual: no visual loss 4. Facial Palsy: minor paralysis 5b. Motor Arm Right: no drift 5a. Motor Arm Left: no drift 6a. Motor Leg Left: no drift 6b. Motor Leg Right: no drift 7. Limb Ataxia: absent 8. Sensory: normal 9. Best Language: no aphasia 10. Dysarthria: normal 11. Extinction/Inattention: no abnormality Total Score: 1 Stroke Severity: Minor Stroke - Psychiatric Psychiatric exam: Present: normal affect, normal mood - Skin Skin exam: Present: warm, dry, intact, normal color. Absent: rash ED Course Vital Signs 02/28/19 02/28/19 02/28/19 10:25 10:41 10:45 Temperature 98.8 F Pulse Rate 77 92 H 85 Respiratory 13 13 14 Rate Blood Pressure 163/112 Blood Pressure 163/112 [Left] O2 Sat by Pulse 100 100 Oximetry 02/28/19 02/28/19 02/28/19 11:01 11:15 11:29 Temperature Pulse Rate 79 61 75 Respiratory 17 11 L Rate Blood Pressure 157/107 157/107 161/109 Blood Pressure [Left] O2 Sat by Pulse 100 99 Oximetry 02/28/19 11:30 Temperature Pulse Rate Respiratory 17 Rate Blood Pressure Blood Pressure [Left] O2 Sat by Pulse 99 Oximetry - Lab Data Result diagrams: 02/28/19 10:37 02/28/19 10:37 Lab Results 02/28/19 02/28/19 02/28/19 Range/Units 10:37 10:37 10:37 WBC 4.2 L (4.5-11.0) K/mm3 RBC 4.70 (3.65-5.03) M/mm3 Hgb 13.4 (10.1-14.3) gm/dl Hct 40.5 (30.3-42.9) % MCV 86 (79-97) fl MCH 29 (28-32) pg MCHC 33 (30-34) % RDW 14.8 (13.2-15.2) % Plt Count 314 (140-440) K/mm3 Lymph % (Auto) 37.3 H (13.4-35.0) % [place] % (Auto) 5.9 (0.0-7.3) % Eos % (Auto) 2.1 (0.0-4.3) % Baso % (Auto) 0.5 (0.0-1.8) % Lymph # 1.6 (1.2-5.4) K/mm3 [place] # 0.2 (0.0-0.8) K/mm3 Eos # 0.1 (0.0-0.4) K/mm3 Baso # 0.0 (0.0-0.1) K/mm3 Seg Neutrophils % 54.2 (40.0-70.0) % Seg Neutrophils # 2.3 (1.8-7.7) K/mm3 PT 12.9 (12.2-14.9) Sec. INR 0.98 (0.87-1.13) APTT 26.6 (24.2-36.6) Sec. Thrombin Time 15.8 (15.1-19.6) Sec. Sodium 141 (137-145) mmol/L Potassium 3.3 L (3.6-5.0) mmol/L Chloride 101.2 (98-107) mmol/L Carbon Dioxide 25 (22-30) mmol/L Anion Gap 18 mmol/L BUN 11 (7-17) mg/dL Creatinine 0.9 (0.7-1.2) mg/dL Estimated GFR > 60 ml/min BUN/Creatinine Ratio 12 % Glucose 91 (65-100) mg/dL POC Glucose (70-105) Lactic Acid (0.7-2.0) mmol/L Calcium 9.3 (8.4-10.2) mg/dL Magnesium (1.7-2.3) mg/dL Total Bilirubin (0.1-1.2) mg/dL Direct Bilirubin (0-0.2) mg/dL Indirect Bilirubin mg/dL AST (5-40) units/L ALT (7-56) units/L Alkaline Phosphatase (35-129) units/L Troponin T < 0.010 (0.00-0.029) ng/mL Total Protein (6.3-8.2) g/dL Albumin (3.9-5) g/dL Albumin/Globulin Ratio % 02/28/19 02/28/19 02/28/19 Range/Units 10:39 10:45 10:45 WBC (4.5-11.0) K/mm3 RBC (3.65-5.03) M/mm3 Hgb (10.1-14.3) gm/dl Hct (30.3-42.9) % MCV (79-97) fl MCH (28-32) pg MCHC (30-34) % RDW (13.2-15.2) % Plt Count (140-440) K/mm3 Lymph % (Auto) (13.4-35.0) % [place] % (Auto) (0.0-7.3) % Eos % (Auto) (0.0-4.3) % Baso % (Auto) (0.0-1.8) % Lymph # (1.2-5.4) K/mm3 [place] # (0.0-0.8) K/mm3 Eos # (0.0-0.4) K/mm3 Baso # (0.0-0.1) K/mm3 Seg Neutrophils % (40.0-70.0) % Seg Neutrophils # (1.8-7.7) K/mm3 PT (12.2-14.9) Sec. INR (0.87-1.13) APTT (24.2-36.6) Sec. Thrombin Time (15.1-19.6) Sec. Sodium (137-145) mmol/L Potassium (3.6-5.0) mmol/L Chloride (98-107) mmol/L Carbon Dioxide (22-30) mmol/L Anion Gap mmol/L BUN (7-17) mg/dL Creatinine (0.7-1.2) mg/dL Estimated GFR ml/min BUN/Creatinine Ratio % Glucose (65-100) mg/dL POC Glucose 79 (70-105) Lactic Acid 0.90 (0.7-2.0) mmol/L Calcium (8.4-10.2) mg/dL Magnesium 2.30 (1.7-2.3) mg/dL Total Bilirubin 0.30 (0.1-1.2) mg/dL Direct Bilirubin < 0.2 (0-0.2) mg/dL Indirect Bilirubin 0.1 mg/dL AST 16 (5-40) units/L ALT 10 (7-56) units/L Alkaline Phosphatase 51 (35-129) units/L Troponin T (0.00-0.029) ng/mL Total Protein 8.4 H (6.3-8.2) g/dL Albumin 5.0 (3.9-5) g/dL Albumin/Globulin Ratio 1.5 % - Radiology Data Radiology results: report reviewed CT intercranial unremarkable - Medical Decision Making 28 yo woman with acute onset LOC while standing; she sat back down on the couch. She was told she stroke last year after having several falls. She states that she could not feel her tongue. She was unconscious for approx several seconds. No loss of b/b control or tongue biting. Her grandmother in-law noted that she was drooling, but did not note convulsion. She takes a baby ASA daily. Patient reports that she has had a history of a stroke and was seen at [facility]. Patient is unaware of what type of stroke that she had. - Thrombolytic Inclusion/Exclusion Thrombolytic Inclusion Criteria: Negative CT Scan for ICH Thrombolytic Contraindications: Rapidily Improving s/s Critical care attestation.: If time is entered above; I have spent that time in minutes in the direct care of this critically ill patient, excluding procedure time. ED Disposition Clinical Impression: LOC (loss of consciousness) Disposition: DC-09 OP ADMIT IP TO THIS HOSP Is pt being admited?: Yes Does the pt Need Aspirin: Yes Condition: Stable Referrals: PRIMARY CARE, [Primary Care Provider] - 3-5 Days
--- NOTE | 2019-02-28 13:55 | History and Physical Report ---
History of Present Illness Chief complaint: She almost passed out History of present illness: 28 YO Female with Nephrotic Syndrome, HTN, CVA on Antiplatelet therapy presents to ED for evaluation. Pt is lethargic at time of evaluation. Pt family is at bedside and provides history. As per family, the patient was in her usual state of health this morning but developed a sudden onset of drooling, and subsequent near loss of consciousness. Pt was standing, and sat back down on the couch and was unable to speak for several seconds. EMS was notified, and upon arrival the patient was found to be in distress and transported to [facility]. Pt seen and evaluated in ED and found to have Near syncope as well as suspected Seiaure. Pt treated with loading dose of Keppra. Pt admitted to medical floor. Neurology consulted. No reports of fever, chills, CP, Palpitations, NVD, Trauma, BRBPR, Productive cough, Skin Rash, or recent ill contacts. Pt is lethargic but is able to protect her airway without difficulty. No prior admission for review. All listed medication reconciled at time of admission. Past History Past Medical History: other (hpi) Past Surgical History: No surgical history, Other (reviewed) Social history: . denies: smoking, alcohol abuse, prescription drug abuse Family history: hypertension Medications and Allergies Allergies Allergy/AdvReac Type Severity Reaction Status Date / Time No Known Allergies Allergy Verified 06/06/18 15:38 Home Medications Medication Instructions Recorded Confirmed Last Taken Type Methyldopa [Aldomet] 250 mg PO TID #60 tablet 08/04/17 02/28/19 02/27/19 Rx NIFEdipine XL [Procardia Xl] 30 mg PO QDAY #30 tablet 08/04/17 02/28/19 02/27/19 Rx Aspirin [Aspirin BABY CHEW TAB] 81 mg PO QDAY 02/28/19 02/28/19 02/27/19 History Review of Systems ROS unobtainable: due to mental status Exam - Constitutional Vitals: Temp Pulse Resp BP Pulse Ox 98.8 F 64 17 146/115 100 02/28/19 10:25 02/28/19 13:31 02/28/19 13:31 02/28/19 13:31 02/28/19 13:15 General appearance: Present: mild distress - EENT Eyes: Present: miosis ENT: hearing intact, clear oral mucosa - Neck Neck: Present: supple, normal ROM - Respiratory Respiratory effort: normal Respiratory: bilateral: CTA - Cardiovascular Heart Sounds: Present: S1 & S2. Absent: rub, click - Extremities Extremities: pulses symmetrical, No edema Peripheral Pulses: within normal limits - Abdominal General gastrointestinal: Present: soft, non-tender, non-distended, normal bowel sounds Female genitourinary: Present: normal - Integumentary Integumentary: Present: clear, warm, dry - Musculoskeletal Musculoskeletal: gait normal, strength equal bilaterally - Psychiatric Psychiatric: no appropriate mood/affect, no intact judgment & insight, no memory intact - Neurologic Neurologic: CNII-XII intact, no focal deficits, moves all extremities, gait normal Results - Labs CBC & Chem 7: 02/28/19 10:37 02/28/19 10:37 Labs: Abnormal lab results 02/28/19 02/28/19 02/28/19 Range/Units 10:37 10:37 10:45 WBC 4.2 L (4.5-11.0) K/mm3 Lymph % (Auto) 37.3 H (13.4-35.0) % Potassium 3.3 L (3.6-5.0) mmol/L Total Protein 8.4 H (6.3-8.2) g/dL Assessment and Plan - Patient Problems (1) Seizure disorder Current Visit: Yes Status: Acute Plan to address problem: Loading dose Keppra in ED, seizure precautions, EEG, neurology consulted in ED, CT head, neuro checks, (2) Near syncope Current Visit: Yes Status: Acute Plan to address problem: CT head, neuro checks, supportive care, IVF resuscitation therapy (3) Accelerated hypertension Current Visit: Yes Status: Acute Plan to address problem: monitor bp q shift, IV hydralazine prn for SBP >160 (4) Nephrotic syndrome Current Visit: No Status: Acute Plan to address problem: supportive care, outpatient F/U with PCP. (5) DVT prophylaxis Current Visit: Yes Status: Acute Plan to address problem: SCD to BLE while in bed, Pt ambulatory
[2019-02-28] MEDS ORDERED: ONDANSETRON 4 MG/2 ML INJ IV PRN (13:57)
[2019-02-28] MEDS ORDERED: ACETAMINOPHEN 325 MG TAB PO PRN (13:57)
[2019-02-28] MEDS: METHYLDOPA 250 MG TAB PO SCH (14:00)
--- NOTE | 2019-02-28 18:32 | Consultation ---
Past History Past Medical History: other (hpi) Past Surgical History: No surgical history, Other (reviewed) Social history: . denies: smoking, alcohol abuse, prescription drug abuse Family history: hypertension Medications and Allergies Allergies Allergy/AdvReac Type Severity Reaction Status Date / Time No Known Allergies Allergy Verified 06/06/18 15:38 Home Medications Medication Instructions Recorded Confirmed Last Taken Type Methyldopa [Aldomet] 250 mg PO TID #60 tablet 08/04/17 02/28/19 02/27/19 Rx NIFEdipine XL [Procardia Xl] 30 mg PO QDAY #30 tablet 08/04/17 02/28/19 02/27/19 Rx Aspirin [Aspirin BABY CHEW TAB] 81 mg PO QDAY 02/28/19 02/28/19 02/27/19 History Active Meds: Active Medications Acetaminophen (Tylenol) 650 mg PO Q4H PRN PRN Reason: Pain MILD(1-3)/Fever >100.5/[place] Aspirin (Baby Aspirin) 81 mg PO QDAY CALISTA Methyldopa (Aldomet) 250 mg PO TID CALISTA Last Admin: 02/28/19 14:00 Dose: 250 mg Documented by: Nifedipine (Procardia Xl) 30 mg PO QDAY CALISTA Ondansetron HCl (Zofran) 4 mg IV Q8H PRN PRN Reason: Nausea And Vomiting Sodium Chloride (Sodium Chloride Flush Syringe 10 Ml) 10 ml IV BID CALISTA Sodium Chloride (Sodium Chloride Flush Syringe 10 Ml) 10 ml IV PRN PRN PRN Reason: LINE FLUSH Physical Examination - Vital Signs Vital Signs: Vital Signs Temp Pulse Resp BP Pulse Ox 98.8 F 77 13 163/112 100 02/28/19 10:25 02/28/19 10:25 02/28/19 10:25 02/28/19 10:25 02/28/19 10:25 Results - Laboratory Findings CBC and BMP: 02/28/19 10:37 02/28/19 10:37 Abnormal Lab Findings: Abnormal Labs 02/28/19 02/28/19 02/28/19 10:37 10:37 10:45 WBC 4.2 L Lymph % (Auto) 37.3 H Potassium 3.3 L Total Protein 8.4 H Assessment and Plan 28 YR OLD FEMALE WITH HISTORY OF HYPERTENSION,NEPHROTIC SYNDROME IN THE PAST, AND STROKE IN AUGUST 2017 WHEN SHE WAS FOUND TO HAVE RIGHT PARIETAL INFARCT AND WAS DISCHARGED HOME ON ASPIRIN AND STATIN. SHE DISCONTINUED STATIN SHE STATED IT WAS NOT GOOD FOR . PATIENT DEVELOPED A SUDDEN ONSET OF LOSS OF CONSCIOUSNESS THIS MORNING WHICH WAS WITNESSED BY THE GRAND MOTHER,LOSS OF CONSCIOUSNESS LASTED FOR FEW SECONDS AND WAS FOLLOWED BY SLIGHT HEADACHE AND LETHARGY. WORK UP AFTER ADMISSION INCLUDING CT SCAN OF THE BRAIN SHOWS ENCE PHALOMALACIA ON THE RIGHT PARIETAL REGION FROM PREVIOUS STROKE, SHE HAS BEEN STARTED ON KEPPRA 500MG BID, AND HAS BEEN ADMITTED PER RECOMMENDATION OF TELE NEUROLOGIST FOR POSIBLE STROKE WORK UP. OHYSICAL EXAMINATION. PATIENT IS ALERT AND APPROPRIATE. HAS INSIGHT INTO HER CONDITION AND ANSWERS QUESTIONS APPROPRIATELY. HEART- NORMAL RATE AND RHYTHM CAROTIDS- BOTH PALPABLE,NO BRUIT CRANIAL NERVES- ALL CRANIAL NERVES ARE WITH IN NORMAL LIMIT,THERE WAS NO FACIAL ASYMMETRY PUPILS REACT TO LIGHT,EXTRA OCULAR MOVEMENTS ARE INTACT' MOTOR- NORMAL STRENGTH IN ALL FOUR EXTREMITIES WITH OUT ANY ASYMMETRY. COORDINATION- FINGER TO NOSE NORMAL. REFLEXES- ALL REFLEXES RE WITH IN NORMAL LIMIT WITH BILATERAL DOWN GOING TOES. SENSORY: SENSORY EXAMINATION IS GROSSLY WITH IN NORMAL LIMIT. IMPRESSION. 1. PARTIAL COMPLEX SEIZURE, OLD SITE OF INFARCT MAY HAVE PROBABLY ACTED SEIZURE FOCUS. PATIENT MAY HAVE ENFORCEMENT OFFICER VASCULITIS CAUSING STROKE AT YOUNG AGE AND OR ALSO SEIZURE. RECOMMEND 1, CONTINUE KEPPRA 500MG BID,PATIENT SHOULD BE ON THIS MEDICATION FOR A LONG TIME AND SHOULD HAVE REGULAR NEURO FOLLOW UP WITH NEUROLOGIST. 2. AGRESSIVE WORK UP FOR ENFORCEMENT OFFICER VASCULITIS AND OTHER CAUSES OF STROKE AT VERY YOUNG 3. PLEASE CHECK, PROTEIN S, PROTEIN C,ANTI THROMBIN III, FACTOR V LEIDEN,ANTI PHOSPHO LIPID ANTIBODY, LUPUS ANTI COAGULANT AND SERUM HOMOCYSTEINE LEVEL, ALL OF WHCIH CAN CAUSE AT YOUNG AGE. 4. PLEASE CHECK MIGDALIA,ANTI DNA, SED RATE AND CEREBRAL ANGIOGRAM TO LOOK FOR EVIDENCE OF ENFORCEMENT OFFICER VASCULITIS. 5. ADDITIONAL RECOMMENDATION TO FOLLOW IF NEEDED WHEN THE WORK UP IS COMPLETED
[2019-02-28 19:25] LABS: Amphetamine Screen,Urine PRESUMPTIVE NEGATIVE; Benzodiazepines Screen,Urine PRESUMPTIVE NEGATIVE; Cannabinoid Screen,Urine PRESUMPTIVE NEGATIVE; Cocaine Screen,Urine PRESUMPTIVE NEGATIVE; Methadone Screen,Urine PRESUMPTIVE NEGATIVE; Opiate Screen,Urine PRESUMPTIVE NEGATIVE
[2019-03-01] MEDS: METHYLDOPA 250 MG TAB PO SCH ×3 (01:41→16:36)
[2019-03-01 06:51] LABS: BUN/Creatinine Ratio 14; Blood Urea Nitrogen 15 mg/dL (7-17); Hemolysis Index 8
[2019-03-01] MEDS ORDERED: POTASSIUM CHLORIDE ER 20 MEQ TAB PO ONE (09:00)
[2019-03-01] MEDS ORDERED: ASPIRIN 81 MG TAB CHEW PO SCH (10:00)
[2019-03-01] MEDS ORDERED: NIFEdipine XL 30 MG TAB PO SCH (10:00)
--- NOTE | 2019-03-01 12:33 | Progress Note ---
Assessment and Plan 28 YR OLD FEMALE WITH HIST OF STROKE AND RECENT ONSET OF PARTIAL COMPLEX SEIZURE WHO WAS SEEN BY YESTERDAY.PPBECAUSE OF ONSET OF STROKE AT VERY YOUNG AGE APPROPRIATE BLOOD TESTS WERE RECOMMENDED, PATIENT STATES THAT SHE WAS SEEN BY A NEUROLOGIST AN OUT PATEINT FOLLOW UP, SHE COULD NOT ASCERTAIN WHETHER TESTS INCLUDING CEREBRAL ANGIOGRAM AND OTHER BLOOD TESTS WERE DONE OR NOT. PHYSICAL EXAMINATION ALERT AND APPROPRIATE. HEART-NORMAL RATE AND RHYTHM CAROTIDS -BOTH PALPABLE,NO BRUIT CRANIAL NERVES-ALL ARE WITHIN NORMAL LIMIT MOTOR- NO ASYMMETRY OF STRENGTH OR REFLEXES. IMPRESSION. 1. PARTIAL COMPLEX SEIZURE RESOLVED ON KEPPRA RECOMMEND 1. CONTINUE KEPPRA PRESCRIBED 2. AVOID STRESS,SLEEP DEPRIVATION AND SKIPPING MEAL TO PREVENT RECURRENCE OF SEIZURE. Objective - Vital Sign Vital Signs - 12hr 03/01/19 03/01/19 03/01/19 01:41 04:11 08:22 Temperature 98.0 F Pulse Rate 78 71 Respiratory 20 Rate Blood Pressure 115/76 111/76 128/82 O2 Sat by Pulse 99 Oximetry 03/01/19 03/01/19 08:24 10:18 Temperature Pulse Rate 65 Respiratory Rate Blood Pressure 128/82 136/91 O2 Sat by Pulse Oximetry - Laboratory Findings CBC and BMP: 02/28/19 10:37 03/01/19 05:39 Abnormal Lab Findings: Abnormal Labs 02/28/19 02/28/19 02/28/19 10:37 10:37 10:45 WBC 4.2 L Lymph % (Auto) 37.3 H Potassium 3.3 L Total Protein 8.4 H 03/01/19 05:39 WBC Lymph % (Auto) Potassium 3.4 L Total Protein
--- NOTE | 2019-03-01 13:32 | Magnetic Resonance Report ---
MR BRAIN WITHOUT CONTRAST, MRA HEAD WITHOUT CONTRAST HISTORY: Syncopal episode. History of CVA. COMPARISON: Head CT 02/28/2019 TECHNIQUE: Multiplanar, multi sequential MRI images of the brain, obtained with and without contrast. Routine MRA of the head is performed. 3-D/MIP reformats postprocessed. CONTRAST: None FINDINGS: MR BRAIN: Brain and Intracranial Contents: An area of encephalomalacia is observed along the lateral aspect of the right cerebral hemisphere involving portions of the posterior temporal lobe, parietal lobe latera l occipital lobe. There is associated dilatation of adjacent cortical sulci and mild dilatation of th e atria of the right lateral ventricle. Gyriform linear areas of increased attenuation on T1-weighted scans in this location represents the presence of cortical laminar crisis. No evidence of mass or ma ss effect. No midline shift. No diffusion restriction to suggest acute or subacute infarct. Ventricl es are otherwise normal in size and configuration for age. No evidence of intracranial hemorrhage or extra-axial fluid collection. Visualized Orbits: No significant abnormality. Visualized Paranasal Sinuses: No significant abnormality. MRA HEAD: Intracranial vertebral arteries: No significant abnormality. Basilar artery: No significant abnormality. Posterior cerebral arteries: No significant abnormality. On 3-D reconstructions there is a potential area of decreased vascular caliber along the course of the T3 segment of the left posterior cerebral artery. This is not confirmed on axial source images. Intracranial internal carotid arteries: Normal flow related signal intensity seen throughout the erin ous, cavernous and supraclinoid segments of both internal carotid arteries. Anterior cerebral arteries: No significant abnormality. The caliber of the anterior cerebral arteries is normally maintained throughout. There is no indication of vasculitis or stenosis. Middle cerebral arteries: No significant abnormality. The caliber of the middle cerebral arteries is normally maintained throughout. There is no indication of vasculitis or stenosis. IMPRESSION: 1. Evidence of remote right-sided posterior division right MCA infarction involving portions of the t emporal, parietal and occipital lobes. 2. No abnormality on MRA head. There is no indication of vasculitis. Diagnosis of PIPE LINE GAUGER vasculitis daysi ot be entirely excluded based on MRA findings however. 3. No acute intracranial abnormality. Signer Name: De Martinez MD Signed: 03/01/2019 1:28 PM Workstation Name: [id number]
--- NOTE | 2019-03-01 15:05 | Discharge Summary ---
Providers - Providers Date of Admission: 02/28/19 13:57 Date of discharge: 03/01/19 Attending physician: JOSUÉ AUSTIN 02/28/19 15:02 Consult to Physician [CONS] Routine Comment: Consulting Provider: ALISA VELAZQUEZ Physician Instructions: Reason For Exam: seizure/cva Primary care physician: CONTROL CLERK SUBASSEMBLY Hospitalization Condition: Stable Pertinent studies: CT head MRI brain Hospital course: 28 YO Female with Nephrotic Syndrome, HTN, CVA on Antiplatelet therapy presents to ED for evaluation. Pt is lethargic at time of evaluation. Pt family is at bedside and provides history. As per family, the patient was in her usual state of health this morning but developed a sudden onset of drooling, and subsequent near loss of consciousness. Pt was standing, and sat back down on the couch and was unable to speak for several seconds. EMS was notified, and upon arrival the patient was found to be in distress and transported to [facility]. Pt seen and evaluated in ED and found to have Near syncope as well as suspected Seiaure. Pt treated with loading dose of Keppra. Pt admitted to medical floor. Neurology consulted. No reports of fever, chills. She was monitored o/n and then remained seizure free, BP stabilized, she was then discharged with outpt f/u Discharge Diagnosis: / Partial complex Seizure placed on Loading dose Keppra in ED, seizure precautions, ordered EEG, neurology consulted in ED, obtained CT head, MRA brain neurology recommended to cont keppra BID and outpt f/u with her neurologist and pcp / Presyncope, due to Partial complex Seizure / Accelerated hypertension, improved / Nephrotic syndrome, h/o Renal function stable, supportive care, outpatient F/U with PCP. Disposition: - TO HOME OR SELFCARE Time spent for discharge: 34 minutes Core Measure Documentation - Palliative Care Palliative Care/ Comfort Measures: Not Applicable - Core Measures Any of the following diagnoses?: history only Exam - Constitutional Vitals: Temp Pulse Resp BP Pulse Ox 97.8 F 82 12 115/73 98 03/01/19 12:00 03/01/19 12:00 03/01/19 12:00 03/01/19 12:00 03/01/19 13:42 General appearance: Present: no acute distress, well-nourished - EENT Eyes: Present: PERRL ENT: hearing intact, clear oral mucosa - Neck Neck: Present: supple, normal ROM - Respiratory Respiratory effort: normal Respiratory: bilateral: CTA - Cardiovascular Heart Sounds: Present: S1 & S2. Absent: rub, click - Extremities Extremities: pulses symmetrical, No edema Peripheral Pulses: within normal limits - Abdominal General gastrointestinal: Present: soft, non-tender, non-distended, normal bowel sounds - Integumentary Integumentary: Present: clear, warm, dry - Musculoskeletal Musculoskeletal: gait normal, strength equal bilaterally - Psychiatric Psychiatric: appropriate mood/affect, intact judgment & insight - Neurologic Neurologic: CNII-XII intact, moves all extremities Plan Activity: advance as tolerated, no driving until cleared by PCP Diet: low fat, low salt Special Instructions: record daily BP diary Additional Instructions: f/u with neurologist and PCP in one week. PLEASE CHECK MIGDALIA, ANTI DNA antibody, PROTEIN S, PROTEIN C,ANTI THROMBIN III, FACTOR V LEIDEN,ANTI PHOSPHO LIPID ANTIBODY, LUPUS ANTI COAGULANT AND SERUM HOMOCYSTEINE LEVEL as outpt for hypercoaguable workup. Follow up with: PRIMARY CAREMD [Primary Care Provider] - 3-5 Days Prescriptions: levETIRAcetam [Keppra TAB] 750 mg PO BID #60 tablet
[2019-03-01] MEDS ORDERED: levETIRAcetam 500 MG/5 ML ORAL LIQD PO SCH (16:00)
[2019-03-01 16:36] VITALS: BP 106/71
== END 2019-03-01 16:30 | disposition home or self-care (01) ==
LOC: ED 10:25 → 3A 13:57
PROVIDERS: ADMIT Internal Medicine; ATTEND Internal Medicine
DX: G40.909 Epilepsy, unspecified, not intractable, without status epilepticus (principal); R40.20 Unspecified coma; I10 Essential (primary) hypertension; Z86.73 Personal history of transient ischemic attack (TIA), and cerebral infarction without residual deficits; Z79.02 Long term (current) use of antithrombotics/antiplatelets
CPT/HCPCS: 36415; 70450; 70544; 80048; 80076; 80307; 82140; 82962; 83735; 84484; 85025; 85610; 85670; 85730; 93005; 93010; 95819; 96374; 96375; 99291; G0378; J1953

== ENCOUNTER 2021-11-03 18:18 | Outpatient (CLI) | payer BC, MEDICAID, OTHER ==
[2021-11-03 19:06] VITALS: BP 123/64
== END 2021-11-03 21:00 | disposition home or self-care (01) ==
LOC: TRG 18:18 → APU 18:21 → TRG 21:00
PROVIDERS: ATTEND Obstetrics & Gynecology
DX: O26.893 Other specified pregnancy related conditions, third trimester (principal); Z3A.35 35 weeks gestation of pregnancy
CPT/HCPCS: 36415; 82731

== ENCOUNTER 2021-11-19 00:47 | Inpatient (IN) | payer MEDICAID ==
[2021-11-19] MEDS ORDERED: LOPERAMIDE 2 MG CAP PO PRN (01:35)
[2021-11-19] MEDS ORDERED: METHYLERGONOVINE MALEATE 0.2 MG/ML VIAL IM PRN (01:35)
[2021-11-19] MEDS ORDERED: OXYTOCIN 10 UNIT/1 ML INJ IM PRN (01:35)
[2021-11-19] MEDS ORDERED: BUTORPHANOL 2 MG/1 ML INJ IV PRN (01:35)
[2021-11-19] MEDS ORDERED: CARBOPROST TROMETHAMINE 250 MCG/1 ML INJ IM PRN (01:35)
[2021-11-19] MEDS ORDERED: ACETAMINOPHEN 325 MG TAB PO PRN ×2 (01:35→05:03)
[2021-11-19] MEDS ORDERED: ePHEDrine SULFATE 50 MG/1 ML INJ IV PRN (01:35)
[2021-11-19] MEDS ORDERED: LIDOCAINE (2%) 20 MG/1 ML VIAL 20 ML MDV INFILTRATI ONE (01:35)
[2021-11-19] MEDS ORDERED: TERBUTALINE 1 MG/1 ML INJ SUB-Q PRN (01:35)
[2021-11-19] MEDS ORDERED: fentaNYL 100 MCG/2 ML INJ IV PRN (01:35)
[2021-11-19] MEDS ORDERED: MINERAL OIL 30 ML ORAL LIQD PO PRN (01:35)
[2021-11-19] MEDS ORDERED: miSOPROStol 200 MCG TAB PR PRN (01:35)
[2021-11-19] MEDS ORDERED: LACTATED RINGERS 1,000 ML IV SCH (01:45)
[2021-11-19 01:53] LABS: Hematocrit 30.8 % (30.3-42.9); Hemoglobin 10.2 gm/dl (10.1-14.3); Mean Corpuscular HGB Conc 33 % (30-34); Mean Corpuscular Volume 80 fl (79-97); Platelet Count 271 K/mm3 (140-440); Red Blood Count 3.84 M/mm3 (3.65-5.03); Red Cell Distribution Width 16.2 % (13.2-15.2)
[2021-11-19] MEDS ORDERED: OXYTOCIN DRIP 30 UNITS/500 ML BAG IV SCH ×2 (02:00)
--- NOTE | 2021-11-19 02:17 | History and Physical Report ---
History of Present Illness Date of examination: 11/19/21 Date of admission: 11/19/21 01:36 Chief complaint: uterine contractions History of present illness: 31y/o @ 37+6 weeks presents in active labor with advanced cervical dilation of 10cm. She denies leakage of fluid. records are not available for review at this time. Her GBS status is unknown. Past History Past Medical History: no pertinent history Past Surgical History: no surgical history Social history: - Obstetrical History Expected Date of Delivery: 12/04/21 Actual Gestation: 37 Week(s) 6 Day(s) : 3 Para: 2 Hx # Term Pregnancies: 2 Number of Pregnancies: 0 Spontaneous Abortions: 0 Induced : 0 Number of Living Children: 2 Medications and Allergies Allergies Allergy/AdvReac Type Severity Reaction Status Date / Time No Known Allergies Allergy Verified 11/19/21 01:35 Home Medications Medication Instructions Recorded Confirmed Last Taken Type Methyldopa (Nf) [Aldomet (Nf)] 250 mg PO TID #60 tablet 08/04/17 04/23/20 04/22/20 18:00 Rx NIFEdipine XL [Procardia Xl] 30 mg PO QDAY #30 tablet 08/04/17 04/23/20 04/23/20 06:45 Rx Aspirin [Aspirin BABY CHEW TAB] 81 mg PO QDAY 02/28/19 04/23/20 04/22/20 07:00 History levETIRAcetam [Keppra TAB] 750 mg PO BID #60 tablet 03/01/19 04/23/20 06/21/19 10:00 Rx Plus Tablet 1 tab PO DAILY 01/03/20 04/23/20 04/21/20 08:00 History Ferrous Sulfate [Feosol 325 MG tab] 325 mg PO BID #60 tablet 04/24/20 Unknown Rx Acetaminophen [Mapap] 1,000 mg PO Q8HR PRN #60 capsule 04/25/20 Unknown Rx Active Meds: Active Medications Acetaminophen (Acetaminophen 325 Mg Tab) 650 mg PO Q4H PRN PRN Reason: Pain, Mild (1-3) Butorphanol Tartrate (Butorphanol 2 Mg/1 Ml Inj) 1 mg IV Q2H PRN PRN Reason: Pain, Moderate(4-6) LABOR PAIN Carboprost Tromethamine (Carboprost Tromethamine 250 Mcg/1 Ml Inj) 250 mcg IM ONCE PRN PRN Reason: Uterine Bleeding Ephedrine Sulfate (Ephedrine Sulfate 50 Mg/1 Ml Inj) 10 mg IV Q2M PRN PRN Reason: Hypotension Fentanyl (Fentanyl 100 Mcg/2 Ml Inj) 100 mcg IV Q2H PRN PRN Reason: Pain,Severe (7-10) LABOR PAIN Oxytocin/Sodium Chloride (Pitocin/Ns 30 Unit/500ml) 30 units in 500 mls @ 2 mls/hr IV TITR CALISTA; Protocol Lactated Ringer's (Lactated Ringers) 1,000 mls @ 125 mls/hr IV DIRECT CALISTA Oxytocin/Sodium Chloride (Pitocin/Ns 30 Unit/500ml) 30 units in 500 mls @ 40 mls/hr IV TITR CALISTA; Protocol Loperamide HCl (Loperamide 2 Mg Cap) 2 mg PO ONCE PRN PRN Reason: give with Hemabate Methylergonovine Maleate (Methylergonovine Maleate 0.2 Mg/Ml Vial) 0.2 mg IM ONCE PRN PRN Reason: Uterine Bleeding Mineral Oil (Mineral Oil 30 Ml Oral Liqd) 30 ml PO QHS PRN PRN Reason: Constipation Misoprostol (Misoprostol 200 Mcg Tab) 800 mcg DC ONCE PRN PRN Reason: Uterine Bleeding Oxytocin (Oxytocin 10 Unit/1 Ml Inj) 10 unit IM ONCE PRN PRN Reason: Uterine Bleeding Terbutaline Sulfate (Terbutaline 1 Mg/1 Ml Inj) 0.25 mg SUB-Q ONCE PRN PRN Reason: Hyperstimulation/Hypertonicity Review of Systems All systems: negative Genitourinary: contractions, no leakage of fluid - Vital Signs Vital signs: Vital Signs Pulse Pulse Ox 113 H 100 11/19/21 01:09 11/19/21 01:09 Temp Pulse Resp BP Pulse Ox 115 H 139/89 99 11/19/21 01:49 11/19/21 01:10 11/19/21 01:49 - Physical Exam Breasts: Positive: deferred Cardiovascular: Regular rate Lungs: Positive: Clear to auscultation Abdomen: Positive: normal appearance - Obstetrical Cervical Dilatation: 10 Results Result Diagrams: 11/19/21 01:40 Abnormal lab results 11/19/21 Range/Units 01:40 MCH 27 L (28-32) pg RDW 16.2 H (13.2-15.2) % All other labs normal. Assessment and Plan - Patient Problems (1) Active labor at term Current Visit: Yes Status: Acute Plan to address problem: admit to L&D
[2021-11-19] MEDS ORDERED: WITCH HAZEL/ GLYCERIN PAD TP PRN (05:02)
[2021-11-19] MEDS ORDERED: MAGNESIUM HYDROXIDE (MOM) ORAL LIQD UDC PO PRN (05:02)
[2021-11-19] MEDS ORDERED: PROMETHAZINE 25 MG TAB PO PRN (05:02)
[2021-11-19] MEDS ORDERED: diphenhydrAMINE 25 MG CAP PO PRN (05:02)
[2021-11-19] MEDS ORDERED: ONDANSETRON 4 MG/2 ML INJ IV PRN (05:02)
[2021-11-19] MEDS ORDERED: PROMETHAZINE 25 MG RECT SUPP PR PRN (05:02)
[2021-11-19] MEDS ORDERED: LANOLIN/ZINC/DIMETHICONE (LANSINOH) 7 GM TP PRN (05:02)
[2021-11-19] MEDS ORDERED: HYDROcodone/ACETAMINOPHEN 5-325 MG TAB PO PRN (05:03)
--- NOTE | 2021-11-19 05:05 | Procedure Note ---
OB Delivery Note - Delivery Date of Delivery: 11/19/21 Surgeon: ARTEMIO BERG Estimated blood loss: 100cc - Vaginal Delivery presentation: vertex Delivery position: OA Delivery monitor: external FHT, external uterine Route of delivery: Delivery placenta: spontaneous Delivery cord: 3 umbilical vessels Episiotomy: none Delivery laceration: none Anesthesia: none - Infant A at 1 minute: 8 at 5 minutes: 9 Gender: Female (weight 6lbs 10oz)
[2021-11-19] MEDS ORDERED: MAGNESIUM SULFATE 40GM/1000ML 40 GM/1,000 ML BAG IV ONE (10:05)
[2021-11-19] MEDS ORDERED: MAGNESIUM SULFATE 4 GM/100 ML BAG IV ONE (10:05)
[2021-11-19] MEDS: NIFEdipine XL 60 MG TAB PO SCH ×2 (11:52→23:43)
[2021-11-19] MEDS: IBUPROFEN 800 MG TAB PO SCH ×2 (18:34→21:27)
[2021-11-19 18:40] LABS: Hepatitis C Virus Antibody Non-Reactive (NonReactive)
[2021-11-19 19:00] LABS: Hematocrit 28.1 % (30.3-42.9); Hemoglobin 9.2 gm/dl (10.1-14.3)
[2021-11-19 19:24] LABS: Amphetamine Screen,Urine Negative; Benzodiazepines Screen,Urine Negative; Cannabinoid Screen,Urine Negative; Cocaine Screen,Urine Negative; Methadone Screen,Urine Negative; Opiate Screen,Urine Negative
[2021-11-20] MEDS: IBUPROFEN 800 MG TAB PO SCH (07:22)
[2021-11-20] MEDS ORDERED: IBUPROFEN 800 MG TAB PO PRN (08:19)
[2021-11-20] MEDS: NIFEdipine XL 60 MG TAB PO SCH (09:56)
[2021-11-20] MEDS: ASPIRIN EC 81 MG TAB PO SCH (09:56)
[2021-11-20] MEDS ORDERED: ASPIRIN 81 MG TAB CHEW PO SCH (10:00)
--- NOTE | 2021-11-20 13:15 | Progress Note ---
Assessment and Plan A: PPD#1 s/p at term P: Routine care Anticipate discharge tomorrow Subjective - Subjective Date of service: 11/20/21 Principal diagnosis: s/p at term, CHTN, Stroke, Nephrotic Syndrome Interval history: Patient without complaints today. She reports that she takes nifedipine XL 60 mg daily. Patient reports: appetite normal, voiding normally, pain well controlled, ambulating normally [place]: doing well Objective - Vital Signs Latest vital signs: Vital Signs Temp Pulse Resp BP BP Pulse Ox Pulse Ox 11/20/21 09:07 98.5 F 93 H 16 123/85 100 11/20/21 07:50 98 11/20/21 04:07 98.4 F 102 H 18 104/70 99 11/19/21 23:45 98.1 F 90 18 128/81 98 11/19/21 21:27 18 11/19/21 21:10 98.4 F 76 20 128/92 98 11/19/21 19:50 98 11/19/21 17:32 98 11/19/21 17:15 98.6 F 91 H 16 133/85 100 11/19/21 15:47 98.7 F 18 11/19/21 15:44 77 131/79 11/19/21 15:05 64 163/91 11/19/21 14:49 74 88 11/19/21 14:39 70 100 11/19/21 14:35 64 159/94 11/19/21 14:34 65 100 11/19/21 14:33 67 181/101 11/19/21 14:29 65 100 11/19/21 14:24 65 100 11/19/21 14:19 74 100 11/19/21 14:14 65 100 11/19/21 14:09 68 100 11/19/21 14:06 75 130/83 11/19/21 14:04 65 100 11/19/21 13:59 81 98 Intake and Output 11/19/21 11/20/21 11/20/21 22:59 06:59 14:59 Intake Total 360 480 240 Balance 360 480 240 Intake: Oral 240 Intake, Free Water 360 480 Other: Total, Intake Amount 240 # Voids Void 2 1 1 - Exam Breasts: Present: deferred Abdomen: Present: soft Uterus: Present: fundal height at umbilicus Extremities: Absent: edema - Labs Labs: Abnormal lab results 11/19/21 Range/Units 18:02 Hgb 9.2 L (10.1-14.3) gm/dl Hct 28.1 L (30.3-42.9) %
[2021-11-21] MEDS: NIFEdipine XL 60 MG TAB PO SCH (10:27)
[2021-11-21] MEDS: ASPIRIN EC 81 MG TAB PO SCH (10:28)
--- NOTE | 2021-11-21 11:12 | Progress Note ---
Assessment and Plan A: PPD#2 s/p at term CHTN Nephrotic Syndrome H/o CVA Anemia, asymptomatic P: Routine care Anticipate discharge today Patient requires BP check in 1 week Subjective - Subjective Date of service: 11/21/21 Principal diagnosis: s/p at term, CHTN, Stroke, Nephrotic Syndrome Interval history: Patient without complaints today. She would like to be discharged if possible. Patient reports: appetite normal, voiding normally, ambulating normally [place]: doing well Objective - Vital Signs Latest vital signs: Vital Signs Temp Pulse Resp BP Pulse Ox Pulse Ox 11/21/21 08:30 98 11/21/21 07:36 98.6 F 75 20 125/89 99 11/21/21 05:08 86 133/98 99 11/21/21 00:31 98.0 F 81 18 127/87 99 11/20/21 21:09 83 100/65 99 11/20/21 19:30 98 11/20/21 17:01 99.0 F 99 H 18 131/87 100 11/20/21 12:56 97.8 F 99 H 18 127/86 99 Intake and Output 11/20/21 11/21/21 11/21/21 22:59 06:59 14:59 Intake Total 840 480 120 Output Total 300 Balance 840 180 120 Intake: Oral 360 480 120 Intake, Free Water 480 Output: Urine 300 Void 300 Other: Total, Intake Amount 120 240 120 Total, Output Amount 300 # Voids Void 2 1 1 # Bowel Movements 1 - Exam Breasts: Present: deferred Abdomen: Present: soft Uterus: Present: fundal height at umbilicus Extremities: Absent: edema
--- NOTE | 2021-11-21 11:13 | Discharge Summary ---
Providers - Providers Date of Admission: 11/19/21 01:36 Date of discharge: 11/21/21 Attending physician: ARTEMIO BERG 11/20/21 15:36 Consult to Case Management [CONS] Routine Services Needed at Discharge: Vertical Borer Notified:: yes Phone number called:: [phone] Was contact made?: Yes If yes, spoke with:: Kvng Time called:: 10:00 Comment:: Visited Patient Additional Physician Instructions: NO pre zakiya care. Primary care physician: ARTEMIO BERG Hospitalization Reason for admission: active labor Delivery: Procedure details: Please see delivery note Episiotomy: none Laceration: none Other procedures: none complications: none Discharge diagnosis: IUP at term delivered baby: female Hospital course: Patient was admitted in active labor at term and went on to deliver a viable female via spontaneous vaginal delivery. The remainder of her course was complicated by symptomatic anemia. She met discharge criteria on day #2. She will follow-up in the office for blood pressure check in 1 week. Condition at discharge: Stable Disposition: 01 HOME / SELF CARE / HOMELESS - Discharge Diagnoses (1) Term of female Status: Acute (2) Anemia Status: Acute Qualifiers: Anemia type: unspecified type Qualified Code(s): D64.9 - Anemia, unsp ecified (3) Chronic hypertension Status: Acute (4) H/O: stroke Status: Acute (5) Active labor at term Status: Acute (6) Nephrotic syndrome Status: Acute (7) Vaginal delivery Status: Acute Plan - Discharge Medications Prescriptions: Ferrous Sulfate [Feosol 325 MG tab] 325 mg PO BID #60 tablet Acetaminophen [Tylenol Extra Strength] 500 mg PO Q6H PRN #30 tab PRN Reason: Pain, Moderate (4-6) - Provider Discharge Summary Activity: routine, no sex for 6 weeks, no heavy lifting 4 weeks, no strenuous exercise Diet: routine Instructions: routine Additional instructions: [] Smoking cessation referral if applicable(refer to patient education folder for contact #) [] Refer to [facility] Booklet Call your doctor immediately for: * Fever > 100.5 * Heavy vaginal bleeding ( >1 pad per hour) * Severe persistent headache * Shortness of breath * Reddened, hot, painful area to leg or breast * Drainage or odor from incision. * Keep incision clean and dry at all times and follow doctor's instructions regarding bathing/showering - Follow up plan Follow up: ARTEMIO BERG MD [Primary Care Provider] - 7 Days (If you are unable to make it to your blood pressure check appointment please document blood pressures twice daily and inform the office)
[2021-11-21 13:13] VITALS: BP 121/82
== END 2021-11-21 16:30 | disposition home or self-care (01) | DRG 774 ==
LOC: TRG 00:47 → APU 00:52 → LD 01:36 → TRG 01:36 → LD 01:40 → OB 08:45 → LD 10:04 → OB 16:38
PROVIDERS: ADMIT Obstetrics & Gynecology; ATTEND Obstetrics & Gynecology
PROC: 10E0XZZ Delivery of Products of Conception, External Approach (ICD-10-PCS; principal; 2021-11-19)
DX: O10.92 Unspecified pre-existing hypertension complicating childbirth (principal); Z20.822 Contact with and (suspected) exposure to COVID-19; Z37.0 Single live birth; Z3A.37 37 weeks gestation of pregnancy; O26.833 Pregnancy related renal disease, third trimester; O90.81 Anemia of the puerperium; O99.892 Other specified diseases and conditions complicating childbirth; N04.9 Nephrotic syndrome with unspecified morphologic changes; Z86.73 Personal history of transient ischemic attack (TIA), and cerebral infarction without residual deficits; Z79.82 Long term (current) use of aspirin
CPT/HCPCS: 36415; 80307; 85014; 85018; 85027; 86592; 86706; 86762; 86803; 86850; 86900; 86901; 87806; G0378; J2590; J7120; U0003